=== PATIENT | female | born 1940 | race Caucasian/White ===

== ENCOUNTER 2018-03-11 12:27 | Outpatient (REF) | payer MEDICARE, OTHER, SELFPAY ==
[2018-03-11 21:02] LABS: BUN 14 mg/dL (7-18); CREATININE 1.02 mg/dL (0.55-1.02); Calcium 9.4 mg/dL (8.5-10.1); Chloride 102 mmol/L (98-107); Estimated GFR 52.83 (mL/min/1.73m2); Glucose 100 mg/dL (70-100); Potassium 3.8 mmol/L (3.5-5.1); Sodium 142 mmol/L (136-145); TSH 2.95 uIU/mL (0.358-3.74)
== END 2018-03-11 12:47 ==
LOC: NCHCN 12:27
PROVIDERS: PCP Internal Medicine; Visit Provider Internal Medicine
DX: E03.9 Hypothyroidism, unspecified (principal); I10 Essential (primary) hypertension
CPT/HCPCS: 80048; 84443

== ENCOUNTER 2019-03-14 10:01 | Outpatient (CLI) | payer MEDICARE, OTHER, SELFPAY ==
--- NOTE | 2019-03-14 09:16 | DI.RAD_ITS ---
EXAM: XR HIP RT COMPLETE AP PELVIS CLINICAL HISTORY: R hip pain s/p [facility] TECHNIQUE: COMPARISON: PELVIS AP from 08/05/2011 FINDINGS: Three views were obtained. There are bilateral hip prostheses in position. The components appear we ll seated. No other significant bony abnormality seen. IMPRESSION:
[2019-03-14 22:36] LABS: BUN 14 mg/dL (7-18); CREATININE 0.91 mg/dL (0.55-1.02); Calcium 9.5 mg/dL (8.5-10.1); Chloride 103 mmol/L (98-107); Glucose 102 mg/dL (74-106); Potassium 4.1 mmol/L (3.5-5.1); Sodium 143 mmol/L (136-145); TSH 3.76 uIU/mL (0.36-3.74)
== END 2019-03-14 10:21 ==
PROVIDERS: PCP Internal Medicine; Referring Provider Family Medicine; Visit Provider Student in an Organized Health Care Education/Training Program
DX: M25.551 Pain in right hip (principal); Z96.643 Presence of artificial hip joint, bilateral; I10 Essential (primary) hypertension; E03.9 Hypothyroidism, unspecified; L29.9 Pruritus, unspecified
CPT/HCPCS: 80048; 99214; 73502; 84443

== ENCOUNTER 2019-09-20 00:31 | Outpatient (CLI) | payer MEDICARE, SELFPAY ==
--- NOTE | 2019-09-20 08:45 | DI.NM_ITS ---
APPROVED REPORT Exam: Pharmacologic Patient Location: Out-Patient Room/Bed: BMI: 34.20 Baseline Rhythm: Sinus Bradycardia Comment: chest heaviness 6/10 on arrival to stress lab. Indications: Chest Pain Medical History Medical History: HTN, Hyperlipidemia, Obesity Cardiac Medications: Aspirin, Diltiazem, Metoprolol succinate/ Toprol XL Allergies: titanium dioxide, dyazide,iodine, lisinopril, morphine, spironalactone Cardiac Risk Factors: Hyperlipidemia, Hyperlipidemia, PVD Pretest Chest Pain Characteristics: Non-exertional Chest pain Exercise History: Sedentary Physical Disabilities: Legs Lung Sounds: Clear to auscultation Heart Sounds: Regular Stress Test Details Test: Pharmacologic stress testing performed using 0.4 mg of regadenoson per 5 mL given IV over 10 s econds. Reason for pharmacologic stress test: physical limitation. Nuclear Acquisition: Rest Tc-99m/Stress Tc-99m 1 day Rest Isotope: Tc-99m Sestamibi. Dose: 12.1 Date: 09/20/2019 Injection Time: 0900 Stress Isotope: Tc-99m Sestamibi. Dose: 39 Date: 09/20/2019 Injection Time: 1122 HR Resting HR Supine: 59 bpm Max Heart Rate (APMHR): 143 bpm Target HR (85% APMHR): 121 bpm Max HR Achieved: 81 bpm % of APMHR: 56 Recovery HR: 68 bpm HR response to stress: Normal HR response to stress BP Resting BP Supine: 162/80 mmHg Max BP: 162/80 mmHg Recovery BP: 162/78 mmHg BP response to stress: Normal blood pressure response to stress. ECG Resting ECG: Sinus Bradycardia Stress ECG: Sinus Rhythm, Clear Maximum ST Deviation: 0.8 mm Recovery ECG: Sinus Rhythm Recovery Arrhythmia: None Clinical Reason for Termination: vs returned to baseline Stress Symptoms: Chest pain Exercise duration: 6 min0 sec Exercise capacity: 1 METs Stress ECG Conclusion 1. Resting electrocardiogram was normal. 2. Patient underwent pharmacologic stress. Peak heart rate was 58% of predicted for age. There were no electrocardiographic changes noted. Electrocardiographically the test was nondiagnostic due to i nadequate heart rate. 3. The patient had chest pain prior to the test which persisted 4. There were no significant dysrhythmias Critical Notification Critical Value: No MPI Conclusion Myocardial perfusion appeared within normal limits without evidence of infarction or superimposed isc hemia Ejection fraction was 67% Radiologist Interpretation Radiologist agrees with Harmonic Analyst's Interpretation. Radiologist Interpretation by: Joseph Phelan MD Interpretation Date/Time: 09/26/2019 14:53:15
[2019-09-20] MEDS: Regadenoson 0.4 MG/5 ML SYR IVP (11:39)
== END 2019-09-20 00:51 ==
PROVIDERS: PCP Internal Medicine; Visit Provider Internal Medicine
DX: R07.9 Chest pain, unspecified (principal); R00.1 Bradycardia, unspecified; E78.5 Hyperlipidemia, unspecified; I10 Essential (primary) hypertension; I73.9 Peripheral vascular disease, unspecified; R94.39 Abnormal result of other cardiovascular function study
CPT/HCPCS: 78452; 93016; 93018; 93017; J2785

== ENCOUNTER 2020-04-02 16:55 | Outpatient (REF) | payer MEDICARE, SELFPAY ==
[2020-04-02 14:38] LABS: BUN 20 mg/dL (7-18); Calcium 9.7 mg/dL (8.5-10.1); Chloride 102 mmol/L (98-107); Estimated GFR 53.76 (mL/min/1.73m2); Glucose 115 mg/dL (74-106); Potassium 3.8 mmol/L (3.5-5.1); Sodium 139 mmol/L (136-145); TSH 2.71 uIU/mL (0.36-3.74)
== END 2020-04-02 16:56 | disposition home or self-care (01) ==
LOC: NCHCN 16:55
PROVIDERS: PCP Internal Medicine; Visit Provider Internal Medicine
DX: E03.9 Hypothyroidism, unspecified (principal); I10 Essential (primary) hypertension
CPT/HCPCS: 80048; 84443

== ENCOUNTER 2021-04-16 16:41 | Outpatient (REF) | payer MEDICARE, SELFPAY ==
[2021-04-16 20:23] LABS: Anion Gap 10.6 mmol/L (3-11); BUN 15 mg/dL (7-18); CO2 28.4 mmol/L (21.0-32.0); Calcium 9.5 mg/dL (8.5-10.1); Chloride 104 mmol/L (98-107); Estimated GFR 53.62 (mL/min/1.73m2); Glucose 101 mg/dL (74-106); Magnesium 1.6 mg/dL (1.8-2.4); Potassium 4.1 mmol/L (3.5-5.1); Sodium 143 mmol/L (136-145); TSH 1.96 uIU/mL (0.36-3.74)
== END 2021-04-16 16:42 | disposition home or self-care (01) ==
LOC: NCHCN 16:41
PROVIDERS: PCP Internal Medicine; Visit Provider Internal Medicine
DX: I10 Essential (primary) hypertension (principal); E03.9 Hypothyroidism, unspecified; E87.6 Hypokalemia
CPT/HCPCS: 80048; 83735; 84443

== ENCOUNTER 2021-09-11 11:54 | Outpatient (REF) | payer MEDICARE, SELFPAY | END 2021-09-11 11:55 | disposition home or self-care (01) | LOC: NCHCN 11:54 | PROVIDERS: PCP Internal Medicine; Visit Provider Family Medicine | DX: N39.0 Urinary tract infection, site not specified (principal) | CPT/HCPCS: 87077; 87086; 87186 ==

== ENCOUNTER 2021-10-14 18:20 | Outpatient (REF) | payer MEDICARE, SELFPAY ==
[2021-10-14 15:21] LABS: Abs Immature Grans 0.04 10^3/uL (0.0-0.06); Absolute Basophil Count 0.06 10^3/uL (0.0-0.2); Absolute Eosinophil Count 0.27 10^3/uL (0.0-0.7); Absolute Lymphocyte Count 1.77 10^3/uL (1.2-3.4); Absolute Monocyte Count 0.59 10^3/uL (0.1-0.8); Absolute Neutrophil Count 5.07 10^3/uL (1.2-6.7); Basophils % 0.8; Eosinophils % 3.5; HCT 41.9 % (36.0-46.0); HGB 14.1 g/dL (11.2-15.7); Immature Grans % 0.5; Lymphocytes % 22.7; MCH 30.9 pg (27.0-33.0); MCHC 33.7 % (32.0-36.0); MCV 92 fL (80-95); MPV 10.6 fL (8.0-11.0); Monocytes % 7.6; Neutrophils % 64.9; Platelet Count 259 10^3/uL (130-400); RBC 4.56 10^6/uL (3.93-5.22); RDW 11.7 % (11.7-14.6); RDW-SD 39.4 fL
[2021-10-14 15:55] LABS: ALT 48 U/L (14-59); AST 30 U/L (15-37); Albumin 3.8 g/dL (3.4-5.0); Alkaline Phosphatase 89 U/L (46-116); Anion Gap 8.4 mmol/L (3-11); BUN 21 mg/dL (7-18); Bilirubin, Total 0.5 mg/dL (0.2-1.0); CO2 29.6 mmol/L (21.0-32.0); CREATININE 1.1 mg/dL (0.55-1.02); Calcium 9.8 mg/dL (8.5-10.1); Chloride 103 mmol/L (98-107); Estimated GFR 47.91 (mL/min/1.73m2); Glucose 116 mg/dL (74-106); Magnesium 1.7 mg/dL (1.8-2.4); Potassium 4.2 mmol/L (3.5-5.1); Sodium 141 mmol/L (136-145); Total Protein 7.6 g/dL (6.4-8.2)
== END 2021-10-14 18:21 | disposition home or self-care (01) ==
LOC: NCHCN 18:20
PROVIDERS: PCP Internal Medicine; Visit Provider Internal Medicine
DX: M25.551 Pain in right hip (principal); I10 Essential (primary) hypertension; E83.42 Hypomagnesemia
CPT/HCPCS: 80053; 83735; 85025

== ENCOUNTER 2022-02-21 11:08 | Observation (INO) | payer MEDICARE, SELFPAY ==
[2022-02-21] VITALS (41 sets, daily range): BP systolic 120–181; BP diastolic 46–89; PULSE 71–89; RESP 14–30; TEMP 36.6–36.8; O2SAT 86–95
--- NOTE | 2022-02-21 10:45 | RT.EKG_ITS ---
APPROVED REPORT Exam: Resting ECG Reason for Exam: Dyspnea Patient Location: E HR:69 bpm ECG Measurements Heart Rate 69 AXIS IA 186 P 53 QRSd 87 QRS -4 QT 389 T 43 QTc 418 Conclusion Sinus rhythm...normal P axis, V-rate 60- 99 sinus rhythm, normla axis, normal intervals, non ischemic
--- NOTE | 2022-02-21 12:00 | DI.CT_ITS ---
Exam(s) CT CHEST PE CTA EXAM: CT CHEST PE CTA CLINICAL HISTORY: shortness of breath and chest pain. TECHNIQUE: Imaging Protocol: Axial CT angiography was performed with multi-slice acquisition and mu lti-planar reconstructions as well as axial, coronal and sagittal MIP reconstructions. CONTRAST MATERIAL: Intravenous: Omnipaque 350 Contrast volume:100 ml COMPARISON: CT,NM,TMT NM MPI REST STRESS GRP from 09/20/2019 FINDINGS: Pulmonary Arteries: There are bilateral upper and lower lobe pulmonary emboli are noted extending to the right and left pulmonary arteries. There is no saddle embolus. The emboli are greatest in the lower lobe branches although there are small emboli seen in the upper lobe branches. There is no ev idence of right heart strain. Tracheobronchial tree: Patent where visualized. Mediastinum and Keshia: No dominant adenopathy or fluid collection. Pulmonary parenchyma: No consolidation or dominant measurable mass. Pleura: No effusion or pneumothorax. Heart: The heart is not dilated. No evidence of right heart strain. No coronary artery calcificatio ns are seen. Aorta: Thoracic aorta non-dilated. No aneurysm. No dissection. Mild atherosclerotic changes. Upper abdomen: Pancreas somewhat atrophic. Bones: Severe degenerative changes. No compression fractures. IMPRESSION: Bilateral upper and lower lobe pulmonary emboli. No evidence of right heart strain. Findings were called to Leyla Pearl, emergency department provider. RADIATION DOSE DELIVERED: 563.54mGy.cm Total DLP DATA REPOSITORY: All CT scans at this facility are submitted to the National Radiology Data Registry (NRDR) Dose Index Registry (DIR) with the [employer] ([employer]). RADIATION OPTIMIZATION: All CT scans at this facility use at least one of these dose optimization te chniques: automated exposure control; mA and/or kV adjustment per patient size (includes targeted exa ms where dose is matched to clinical indication); or iterative reconstruction.
[2022-02-21] MEDS: Aspirin 81 MG CHEW 243 MG CH (12:21)
[2022-02-21] MEDS: Dexamethasone 4 MG/ML VIAL 6 MG IVP (12:22)
[2022-02-21 12:26] LABS: Abs Immature Grans 0.05 10^3/uL (0.0-0.06); Absolute Basophil Count 0.07 10^3/uL (0.0-0.2); Absolute Lymphocyte Count 0.99 10^3/uL (1.2-3.4); Absolute Neutrophil Count 7.59 10^3/uL (1.2-6.7); Basophils % 0.7; Eosinophils % 2.1; HCT 41.4 % (36.0-46.0); HGB 14.2 g/dL (11.2-15.7); Immature Grans % 0.5; Lymphocytes % 10.3; MCH 31.3 pg (27.0-33.0); MCHC 34.3 % (32.0-36.0); MCV 91 fL (80-95); MPV 8.9 fL (8.0-11.0); Monocytes % 7.3; Neutrophils % 79.1; Platelet Count 284 10^3/uL (130-400); RBC 4.53 10^6/uL (3.93-5.22); RDW 11.8 % (11.7-14.6); RDW-SD 39.4 fL
--- NOTE | 2022-02-21 12:35 | ED.GENADUL_ITS ---
Discharge Plan Disposition Patient Disposition: Home Condition: Serious Discharge Details Clinical Impression: Pulmonary embolism Primary Care Provider: Cedric Martinez ED Provider: Leyla Pearl Discharge Data Discharge Date/Time-TO BE ENTERED AT DEPARTURE: 02/21/22 16:54 Medical Decision Making This 81-year-old female presents with reports of shortness of breath and chest pain that started this morning in the presence of recent COVID infection 20 days ago Denies prior history of similar symptoms in the past D-dimer 6492, CTA showing bilateral PEs with large clot burden, troponin negative, BNP mildly elevated, no evidence of heart strain per radiologist on CTA, specifically no infarction Patient ambulatory sat of 86% with chest pain on any sort of exertion Will need admission just for observation Lovenox initiated initially, will likely transition to Eliquis Return cautions reviewed and patient expressed understanding CODE STATUS DNR/DNI Medical Records Medical records reviewed: Yes I reviewed the patient's medical records. Lab Data Lab results reviewed: Yes I reviewed the patient's lab results. HPI General Date/Time Provider Initiated Documentation: 02/21/22 11:56 . HPI Narrative: This 81-year-old female presents with worsening shortness of breath. Tested positive for COVID on 29 January. States symptoms started on the fifth. She took packs living and has had persistent symptoms but worsened today. Reports some pressure in her chest, predominantly when taking deep inspiration. She denies any calf pain or swelling. She denies any recent flights, surgeries, long drives. She denies prior history of coagulopathy. Denies known history of COPD. Does not smoke tobacco. Denies any history of coronary artery disease. Related Data Home Medications Medication Instructions Recorded Confirmed metoprolol succinate 50 mg 50 mg PO DAILY 09/06/12 02/21/22 tablet,extended release 24 hr cephalexin 500 mg capsule 2,000 mg PO .BEFORE DENTAL APPT PRN 01/10/16 02/21/22 indapamide 1.25 mg tablet 1.25 mg PO DAILY 01/10/16 02/21/22 levothyroxine 25 mcg tablet 25 mcg PO DAILY 01/10/16 02/21/22 potassium chloride 10 mEq 10 meq PO DAILY 01/10/16 02/21/22 tablet,extended release triamcinolone acetonide 0.1 % 1 applic topical PRN PRN Itching 01/10/16 02/21/22 topical cream diltiazem HCl 240 mg 240 mg PO DAILY 09/05/16 02/21/22 tablet,extended release 24 hr acetaminophen 500 mg tablet 1,000 mg PO BID PRN 02/21/22 02/21/22 cholecalciferol (vitamin D3) 25 3 cap PO DAILY 02/21/22 02/21/22 mcg (1,000 unit) capsule (Vitamin D3) losartan 25 mg tablet 1 tab PO HS 02/21/22 02/21/22 magnesium oxide 1 cap PO DAILY 02/21/22 02/21/22 omeprazole 20 mg capsule,delayed 1 cap PO PRN PRN 02/21/22 02/21/22 release rivaroxaban 15 mg tablet (Xarelto) 15 mg PO BID #42 tabs 02/22/22 rivaroxaban 20 mg tablet (Xarelto) 20 mg PO DAILY #30 tabs 02/22/22 Previous Rx's Medication Instructions Recorded rivaroxaban 15 mg tablet (Xarelto) 15 mg PO BID #42 tabs 02/22/22 rivaroxaban 20 mg tablet (Xarelto) 20 mg PO DAILY #30 tabs 02/22/22 Allergies Allergy/AdvReac Type Severity Reaction Status Date / Time iodine Allergy Severe itching, Unverified 03/14/19 08:44 rash, skin irritation morphine sulfate Allergy Severe itching, Unverified 03/14/19 08:44 [From MS Contin] rash, skin irritation sulfamethoxazole Allergy Severe itching, Unverified 03/14/19 08:44 [From Bactrim] rash, skin irritation trimethoprim [From Bactrim] Allergy Severe itching, Unverified 03/14/19 08:44 rash, skin irritation General Stated Complaint: SOB MITCHELL: 3 Review of Systems All systems reviewed & are unremarkable except as noted in HPI and below PFSH All Active Problems (Updated 02/23/22 @ 00:01 by LESLEE SIBLEY) Pulmonary embolism (Chronic) Trochanteric bursitis of right hip (Acute) Medical History (Updated 02/23/22 @ 00:01 by LESLEE SIBLEY) Essential hypertension Hypercholesterolemia Obesity Osteoporosis Surgical History (Updated 03/14/19 @ 10:34 by SRINIVASAN Jacobsen) Abdominal hysterectomy Arthroplasty of knee Colonoscopy - IV Sedation History of total left hip replacement w/ revision as 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 Fay History of total right knee replacement (TKR) Open Carpal Tunnel release Social History Smoking/Tobacco Use Status: Never Smoking risk assessment performed?: Yes Alcohol Intake: never Drug use: Never Substance use type: does not use Current gender identity: female Do you feel safe at home: Yes Do you feel safe in your relationship?: Yes Exam Const General: cooperative, comfortable and no acute distress Orientation: alert and oriented x3 Eyes Sclera: sclerae normal Resp Effort & Inspection: tachypneic Auscultation: clear to auscultation bilaterally Cardio Rate: regular rate Rhythm: regular rhythm Skin General skin exam: no rashes or lesions noted Neuro General: patient alert and patient oriented x3 Extrem Other: No visible swelling, distal pulses intact Course Vital Signs Vital signs: Vital Signs Temperature 36.6 C 02/21/22 11:12 Pulse 74 02/21/22 11:12 Respiratory Rate 28 H 02/21/22 11:12 Blood Pressure 154/80 H 02/21/22 11:12 Pulse Oximetry 94 02/21/22 11:12 Temperature 36.6 C 02/21/22 11:12 Temperature Source Temporal Artery Scan 02/21/22 11:12 Pulse 79 02/21/22 12:16 Pulse 78 02/21/22 12:16 Respiratory Rate 24 02/21/22 12:16 Respiratory Effort 02/21/22 11:31 Respiratory Depth Normal 02/21/22 11:31 Respiratory Pattern Normal 02/21/22 11:31 Blood Pressure 151/66 H 02/21/22 12:16 Blood Pressure Mean 88 02/21/22 12:16 Blood Pressure Position Supine 02/21/22 11:12 Pulse Oximetry 93 02/21/22 12:16 Oxygen Delivery Method Room Air 02/21/22 11:12 Oxygen Flow Rate 0 02/21/22 11:12 Pain Level 3 02/21/22 11:31 Lab/Test Results Lab/Test Results: Laboratory Tests Range/Units 02/21/22 02/21/22 11:46 11:46 WBC (4.4-10.8) 10^3/uL 9.60 RBC (3.93-5.22) 10^6/uL 4.53 Hgb (11.2-15.7) g/dL 14.2 Hct (36.0-46.0) % 41.4 MCV (80-95) fL 91 MCH (27.0-33.0) pg 31.3 MCHC (32.0-36.0) % 34.3 RDW (11.7-14.6) % 11.8 Plt Count (130-400) 10^3/uL 284 MPV (8.0-11.0) fL 8.9 Immature Gran % 0.5 Neutrophils % 79.1 Lymphocytes % 10.3 Monocytes % 7.3 Eosinophils % 2.1 Basophils % 0.7 Nucleated RBC % (0.0-0.3) % 0.0 Absolute Neutrophils (1.2-6.7) 10^3/uL 7.59 H Absolute Lymphocytes (1.2-3.4) 10^3/uL 0.99 L Absolute Monocytes (0.1-0.8) 10^3/uL 0.70 Absolute Eosinophils (0.0-0.7) 10^3/uL 0.20 Absolute Basophils (0.0-0.2) 10^3/uL 0.07 Sodium Cancelled Potassium Cancelled Chloride Cancelled Carbon Dioxide Cancelled Anion Gap Cancelled BUN Cancelled Creatinine Cancelled Est GFR (CKD-EPI 2020) Cancelled Glucose Cancelled Calcium Cancelled Total Bilirubin Cancelled AST Cancelled ALT Cancelled Alkaline Phosphatase Cancelled Total Protein Cancelled Albumin Cancelled Critical Care Time Critical Care Time Attestation: Approximately 45 minutes of critical care time for pulmonary embolism in need of anticoagulation, CTA chest, with diagnostic interpretation, diagnostic blood work
[2022-02-21 12:51] LABS: ALT 32 U/L (14-59); AST 21 U/L (15-37); Albumin 3.7 g/dL (3.4-5.0); Alkaline Phosphatase 106 U/L (46-116); Anion Gap 7.2 mmol/L (3-11); BUN 23 mg/dL (7-18); Bilirubin, Total 0.3 mg/dL (0.2-1.0); CO2 28.8 mmol/L (21.0-32.0); CREATININE 1.1 mg/dL (0.55-1.02); Calcium 9.4 mg/dL (8.5-10.1); Chloride 103 mmol/L (98-107); Estimated GFR 51.11 (mL/min/1.73m2); Glucose 114 mg/dL (74-106); Magnesium 1.7 mg/dL (1.8-2.4); NT-proBNP 403 pg/mL (<300); Potassium 3.6 mmol/L (3.5-5.1); Sodium 139 mmol/L (136-145); Total Protein 7.5 g/dL (6.4-8.2); Troponin I < 50 ng/L (<or=60)
[2022-02-21 13:03] LABS: D-Dimer 6241 ng/mlFEU (<500)
[2022-02-21] MEDS: Normal Saline - Diluent 50 ML VIAL IJ (13:23)
[2022-02-21] MEDS: Omnipaque 350 MG/ML 100 ML BTL IJ (13:29)
[2022-02-21] MEDS: Enoxaparin 80 MG/0.8 ML SYR 90 MG SC (15:34)
[2022-02-21 15:38] LABS: Source Nasal/Nares
[2022-02-21 16:09] LABS: COVID-19 PCR Negative (Negative)
[2022-02-21 17:08] LABS: Troponin I < 50 ng/L (<or=60)
--- NOTE | 2022-02-21 18:35 | W.PM.HP.N ---
Date of service: 02/21/22 Time of Service: 18:35 Assessment and Plan Assessment and plan (1) Pulmonary embolism: Status: Chronic Assessment and plan: Shortness of breath; Apixaban 10 mg BID , oxygen as needed; CTA positive for PE Telemetry (2) Essential hypertension: Assessment and plan: Continue home meds (3) Obesity: Assessment and plan: clinical research administrator consult (4) DVT prophylaxis: Status: Acute Assessment and plan: Apixaban (5) Discharge planning issues: Status: Acute Assessment and plan: Home when stable, no services Discussed with Dr Mahmood History of Present Illness History of Present Illness Chief Complaint: Shortness of breath Narrative: This 81-year-old female paitent presented to the [facility] ED with chief complaint of shortness of breath.? She reports having tested positive for COVID on 29 January.? She took paxlovid and had persistent symptoms and she reported it worsened today.? She also reported some pressure in her chest, with deep breathing. ? She denied any calf pain or swelling.? She denied any recent flights, surgeries, long drives.? She denied prior history of coagulopathy.? Denied known history of COPD.? Does not smoke tobacco.? Denies any history of coronary artery disease. She was found to have pulmonary embolism, was put on Apixaban and placed on observation on the medical floor. SPO2 on RA 94%, speaks in full sentences. 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 Fay History of total right knee replacement (TKR) Open Carpal Tunnel release Social History Smoking/Tobacco Use Status: Never Smoking risk assessment performed?: Yes Alcohol Intake: never Drug use: Never Substance use type: does not use Current gender identity: female Do you feel safe at home: Yes Do you feel safe in your relationship?: Yes Meds Allergies and Home Medications Allergies Allergy/AdvReac Type Severity Reaction Status Date / Time iodine Allergy Severe itching, Unverified 03/14/19 08:44 rash, skin irritation morphine sulfate Allergy Severe itching, Unverified 03/14/19 08:44 [From MS Contin] rash, skin irritation sulfamethoxazole Allergy Severe itching, Unverified 03/14/19 08:44 [From Bactrim] rash, skin irritation trimethoprim [From Bactrim] Allergy Severe itching, Unverified 03/14/19 08:44 rash, skin irritation Home Medications Medication Instructions Recorded Confirmed Type metoprolol succinate 50 mg 50 mg PO DAILY 09/06/12 02/21/22 History tablet,extended release 24 hr cephalexin 500 mg capsule 2,000 mg PO .BEFORE DENTAL APPT PRN 01/10/16 02/21/22 History indapamide 1.25 mg tablet 1.25 mg PO DAILY 01/10/16 02/21/22 History levothyroxine 25 mcg tablet 25 mcg PO DAILY 01/10/16 02/21/22 History potassium chloride 10 mEq 10 meq PO DAILY 01/10/16 02/21/22 History tablet,extended release triamcinolone acetonide 0.1 % 1 applic topical PRN PRN Itching 01/10/16 02/21/22 History topical cream diltiazem HCl 240 mg 240 mg PO DAILY 09/05/16 02/21/22 History tablet,extended release 24 hr acetaminophen 500 mg tablet 1,000 mg PO BID PRN 02/21/22 02/21/22 History cholecalciferol (vitamin D3) 25 3 cap PO DAILY 02/21/22 02/21/22 History mcg (1,000 unit) capsule (Vitamin D3) losartan 25 mg tablet 1 tab PO HS 02/21/22 02/21/22 History magnesium oxide 1 cap PO DAILY 02/21/22 02/21/22 History omeprazole 20 mg capsule,delayed 1 cap PO PRN PRN 02/21/22 02/21/22 History release rivaroxaban 15 mg tablet (Xarelto) 15 mg PO BID #42 tabs 02/22/22 Rx rivaroxaban 20 mg tablet (Xarelto) 20 mg PO DAILY #30 tabs 02/22/22 Rx Exam Const General: cooperative, healthy appearing, comfortable and no acute distress HENMT Head: normal to inspection, normocephalic and atraumatic Face and sinus: normal facial exam Mouth: oral mucosae normal Throat: posterior oropharynx normal Eyes General: appearance normal, both eyes and all related structures Alignment and Position: alignment normal Conjunctivae: conjunctivae normal Sclera: sclerae normal Pupils: PERRL Neck Neck: normal visual inspection, full ROM, no lymphadenopathy, no meningeal signs and trachea midline Chest Chest: normal inspection of the chest and normal palpation of entire chest wall Resp Effort & Inspection: normal respiratory effort and able to speak in complete sentences Auscultation: clear to auscultation bilaterally Cardio Jugular venous pressure: no JVD Rate: regular rate Rhythm: regular rhythm Heart Sounds: S1 normal and S2 normal GI Inspection: normal to inspection and non-distended Palpation: soft, hepatosplenomegaly present and nontender Auscultation: normal bowel sounds Back/Spine/Pelvis Back: no CVA tenderness Cervical Spine: normal cervical lordosis Thoracic/Lumbar Spine: thoracic and lumbar spine normal to inspection Pelvis: no pain with anterior-posterior compression Skin General skin exam: no rashes or lesions noted, elasticity normal and turgor normal Neuro General: patient alert, patient awake, patient oriented x3, gait normal, tone normal, moves all extremities and normal light touch, pain and propioception Cranial Nerves: CN's II-XI intact bilaterally Cognition: normal cognition Speech: speech normal Gait: normal gait Motor: muscle tone normal throughout Sensory Exam: no sensory deficits noted Extrem General: normal to inspection, full ROM and capillary refill normal Right upper extremity: normal to inspection Left upper extremity: normal to inspection Right lower extremity: normal to inspection Left lower extremity: normal to inspection Results Labs Result diagrams: 02/21/22 11:46 02/22/22 05:40 Labs: Laboratory Results - last 24 hr 02/21/22 02/21/22 02/21/22 11:46 11:46 11:46 WBC RBC Hgb Hct MCV MCH MCHC RDW Plt Count MPV Immature Gran % Neutrophils % Lymphocytes % Monocytes % Eosinophils % Basophils % Nucleated RBC % Absolute Neutrophils Absolute Lymphocytes Absolute Monocytes Absolute Eosinophils Absolute Basophils D-Dimer 6241 H Sodium 139 Cancelled Potassium 3.6 Cancelled Chloride 103 Cancelled Carbon Dioxide 28.8 Cancelled Anion Gap 7.2 Cancelled BUN 23 H Cancelled Creatinine 1.1 H Cancelled Est GFR (CKD-EPI 2020) 51.11 Cancelled Glucose 114 H Cancelled Calcium 9.4 Cancelled Magnesium 1.7 L Total Bilirubin 0.3 Cancelled AST 21 Cancelled ALT 32 Cancelled Alkaline Phosphatase 106 Cancelled Troponin I < 50 NT-Pro-B Natriuret Pep 403 H Total Protein 7.5 Cancelled Albumin 3.7 Cancelled COVID-19 Source SARS-CoV-2 (PCR) 02/21/22 02/21/22 02/21/22 11:46 15:30 16:24 WBC 9.60 RBC 4.53 Hgb 14.2 Hct 41.4 MCV 91 MCH 31.3 MCHC 34.3 RDW 11.8 Plt Count 284 MPV 8.9 Immature Gran % 0.5 Neutrophils % 79.1 Lymphocytes % 10.3 Monocytes % 7.3 Eosinophils % 2.1 Basophils % 0.7 Nucleated RBC % 0.0 Absolute Neutrophils 7.59 H Absolute Lymphocytes 0.99 L Absolute Monocytes 0.70 Absolute Eosinophils 0.20 Absolute Basophils 0.07 D-Dimer Sodium Potassium Chloride Carbon Dioxide Anion Gap BUN Creatinine Est GFR (CKD-EPI 2020) Glucose Calcium Magnesium Total Bilirubin AST ALT Alkaline Phosphatase Troponin I < 50 NT-Pro-B Natriuret Pep Total Protein Albumin COVID-19 Source Nasal/Nares SARS-CoV-2 (PCR) Negative Last Vital Signs Temp 36.8 C 02/21/22 17:06 Pulse 85 02/21/22 17:06 Resp 25 H 02/21/22 17:06 BP 167/76 H 02/21/22 17:06 Pulse Ox 94 02/21/22 17:06
--- NOTE | 2022-02-21 20:43 | TELEP.MEDREC ---
Date of service: 02/21/22 Time of Service: 20:43 Telepharmacy Home Med Rec Allergies Allergies: iodine Allergy (Severe, Unverified 03/14/19 08:44) itching, rash, skin irritation morphine sulfate [From MS Contin] Allergy (Severe, Unverified 03/14/19 08:44) itching, rash, skin irritation sulfamethoxazole [From Bactrim] Allergy (Severe, Unverified 03/14/19 08:44) itching, rash, skin irritation trimethoprim [From Bactrim] Allergy (Severe, Unverified 03/14/19 08:44) itching, rash, skin irritation Interview Person Interviewed: Pt Quality Quality of Interview/Accuracy of Medication List: Good Sources Sources used to compile medication list: [facility] Medication List and Patient List Changes made to Home Medication List: ADDITIONS: None DELETIONS: MVI CHANGES: APAP 1000 mg po bid prn Losartan 25 mg po qhs Omeprazole 20 mg po qday Additional Notes Additional Notes: Pt finished Paxlovid course earlier in January. Pt reports that she takes all meds in the morning except losartan at bedtime. Recommended Changes Recommended Changes(reason for recommendation): Coadministration of levothyroxine, vitamins/minerals, and omeprazole is not recommeded due to drastically reduced the amount of levothyroxine that is absorbed. Recommend pt continue taking levothryoxine in the am and omeprazole and all supplements at another meal (for example, levo in am, supplements at lunch, omeprazole at dinner). Attestation: The home medication list is now updated to the best of my knowledge and is ready to be reconciled by the provider. Please contact the TelePharmacy Medication Reconciliation Pharmacist at for any questions.
[2022-02-21] MEDS: Acetaminophen 500 MG TAB 1000 MG PO (22:37)
[2022-02-21] MEDS: Losartan 25 MG TAB PO (22:37)
[2022-02-22] VITALS (7 sets, daily range): BP systolic 132–166; BP diastolic 68–84; PULSE 63–87; RESP 17–20; TEMP 36.4–37; O2SAT 88–98
[2022-02-22] MEDS: Apixaban 5 MG TAB 10 MG PO ×2 (00:07→08:16)
[2022-02-22] MEDS: Omeprazole 20 MG CAPCR PO (06:33)
[2022-02-22] MEDS: Levothyroxine 25 MCG TAB PO (06:33)
[2022-02-22 06:38] LABS: Anion Gap 9.1 mmol/L (3-11); BUN 22 mg/dL (7-18); CO2 25.9 mmol/L (21.0-32.0); CREATININE 1.2 mg/dL (0.55-1.02); Calcium 9.4 mg/dL (8.5-10.1); Chloride 106 mmol/L (98-107); Estimated GFR 46.05 (mL/min/1.73m2); Glucose 147 mg/dL (74-106); Magnesium 1.8 mg/dL (1.8-2.4); Potassium 4.1 mmol/L (3.5-5.1); Sodium 141 mmol/L (136-145)
[2022-02-22] MEDS: Magnesium Oxide 400 MG TAB PO (08:16)
[2022-02-22] MEDS: Cholecalciferol (Vitamin D3) 1,000 UNIT TAB 3000 UNITS PO (08:16)
[2022-02-22] MEDS: Multivitamin TAB 1 TAB PO (08:16)
[2022-02-22] MEDS: dilTIAZem CD 120 MG CAPCR 240 MG PO (08:16)
[2022-02-22] MEDS: Potassium Chloride 10 MEQ TABCR PO (08:16)
[2022-02-22] MEDS: Metoprolol CR 50 MG TABCR PO (08:17)
--- NOTE | 2022-02-22 11:01 | W.PM.DS.N ---
Date of service: 02/22/22 Time of Service: 11:00 DS: Diagnosis Discharge Diagnosis (1) Pulmonary embolism: Status: Chronic Asessment and Plan: Will start Xarelto (her insurance will not pay for Apixaban) (2) Essential hypertension: Asessment and Plan: Continue home meds (3) Obesity: Discharge Plan Disposition Patient Disposition: Home Condition: Good Discharge Details Reason For Visit: Pulmonary Embolism Admit Date/Time: 02/21/22 15:49 Admit Provider: Iftikhar Mahmood Attending Provider: Iftikhar Mahmood Primary Care Provider: Cedric Martinez Hospital Course Hospital Course: 81-year-old female patient presented to the [facility] ED with chief complaint of shortness of breath. She reports having tested positive for COVID on January 29. She took Paxil elevated and had persistent symptoms, which she reported worsened on day of admission. She also reported some pressure in her chest with deep breathing. She denied any calf pain or swelling. She denied any recent air travel, surgeries, long drives. She denied prior history of coagulopathy. Denied known history of COPD. She does not smoke tobacco. She denies any history of coronary artery disease. She was found to have Dav embolism per CT scan and was put on apixaban. She is placed on observation on the medical floor overnight where she remained stable and her oxygen saturations remained over 94% on room air. She is speaking full sentences and she is able to walk to the bathroom without getting short of breath. Her vital signs are stable and labs are unremarkable. Her lungs are clear. She is being discharged home with Xarelto, her insurance will not pay for Apixaban. Discussed with Dr Mahmood Home Meds and New Rx's Prescriptions: New Xarelto 15 mg tablet 15 mg PO BID Qty: 42 0RF Rx Instructions: must administer with evening meal 15 mg twice a day for 21 days Xarelto 20 mg tablet 20 mg PO DAILY Qty: 30 0RF Rx Instructions: must administer with evening meal Begin after 15 mg for 21 days has been completed Continued metoprolol succinate 50 MG tablet extended release 24 hr 50 mg PO DAILY diltiazem HCl 240 MG tablet extended release 24 hr 240 mg PO DAILY potassium chloride 10 MEQ tablet extended release 10 meq PO DAILY levothyroxine 25 MCG tablet 25 mcg PO DAILY indapamide 1.25 MG tablet 1.25 mg PO DAILY triamcinolone acetonide 15 GM cream 1 applic Topical PRN PRN (Reason: Itching) cephalexin 500 MG capsule 2,000 mg PO .BEFORE DENTAL APPT PRN losartan 25 mg tablet 1 tab PO HS cholecalciferol (vitamin D3) [Vitamin D3] 25 mcg (1,000 unit) capsule 3 cap PO DAILY Label Comments: Take 1 capsule by mouth once a day magnesium oxide 400 mg magnesium capsule 1 cap PO DAILY Label Comments: Take 1 capsule by mouth once a day omeprazole 20 mg capsule,delayed release(DR/EC) 1 cap PO PRN PRN acetaminophen 500 mg Tablet 1,000 mg PO BID PRN Discontinued aspirin 81 mg tablet,delayed release (DR/EC) 81 mg PO DAILY Discharge Instructions Instructions: Apixaban (By mouth), Pulmonary Embolism (DC) Additional Instructions: Take apixaban - 10 mg twice a day for ten days and then 5 mg twice a day until you see your PCP. Be cautious not to fall, bump your head, etc. You are at greater risk of bleeding while taking Apixaban. Do not take Aspirin while taking Apixaban. Stand Alone Forms: Nursing Discharge Form Referrals: Cedric Martinez MD [Primary Care Provider] - (Please call Thursday to make an Appointment in the next 1-2 weeks) Activity:: Activity as Tolerated Equipment/Supplies:: No Equipment Needed Diet:: Low Sodium Discharge Orders Discharge Orders: Discharge Order (Routine); Ordered 02/22/22 Ordered By: Kaila Donohue Discharge Data Discharge Date/Time-TO BE ENTERED AT DEPARTURE: 02/22/22 13:08 DS: Summary Time Spent with Patient providing and/or coordinating discharge services: Greater than 30 minutes Status at Discharge Functional status at discharge: independent ambulation Overall status at discharge: patient is progressing back to baseline Mental Status: mental status grossly normal Speech and Movement: speech and movement normal Mood: congruent mood Affect: normal affect Exam Const General: cooperative, healthy appearing, comfortable and no acute distress [facility] Head: normal to inspection, normocephalic and atraumatic Face and sinus: normal facial exam Mouth: oral mucosae normal Throat: posterior oropharynx normal Eyes General: appearance normal, both eyes and all related structures Alignment and Position: alignment normal Conjunctivae: conjunctivae normal Sclera: sclerae normal Pupils: PERRL Neck Neck: normal visual inspection, full ROM, no lymphadenopathy, no meningeal signs and trachea midline Chest Chest: normal inspection of the chest and normal palpation of entire chest wall Resp Effort & Inspection: normal respiratory effort and able to speak in complete sentences Auscultation: clear to auscultation bilaterally Cardio Jugular venous pressure: no JVD Rate: regular rate Rhythm: regular rhythm Heart Sounds: S1 normal and S2 normal GI Inspection: normal to inspection and non-distended Palpation: soft, hepatosplenomegaly present and nontender Auscultation: normal bowel sounds Back/Spine/Pelvis Back: no CVA tenderness Cervical Spine: normal cervical lordosis Thoracic/Lumbar Spine: thoracic and lumbar spine normal to inspection Pelvis: no pain with anterior-posterior compression Skin General skin exam: no rashes or lesions noted, elasticity normal and turgor normal Neuro General: patient alert, patient awake, patient oriented x3, gait normal, tone normal, moves all extremities and normal light touch, pain and propioception Cranial Nerves: CN's II-XI intact bilaterally Cognition: normal cognition Speech: speech normal Gait: normal gait Motor: muscle tone normal throughout Sensory Exam: no sensory deficits noted Extrem General: normal to inspection, full ROM and capillary refill normal Right upper extremity: normal to inspection Left upper extremity: normal to inspection Right lower extremity: normal to inspection Left lower extremity: normal to inspection Psych Mental Status: mental status grossly normal Speech and Movement: speech and movement normal Mood: congruent mood Affect: normal affect DS: Data Vitals/I&O Vitals and I&O: Vital Signs Temperature 36.4 C L 02/22/22 07:48 Temperature Source Tympanic 02/22/22 07:48 Pulse 65 02/22/22 08:02 Pulse Rhythm Regular 02/22/22 08:15 Pulse 82 02/21/22 16:46 Respiratory Rate 18 02/22/22 07:48 Respiratory Effort 02/22/22 08:15 Respiratory Depth Normal 02/22/22 08:15 Respiratory Pattern Normal 02/22/22 08:15 Blood Pressure 163/84 H 02/22/22 07:48 Blood Pressure Mean 86 02/21/22 16:46 Blood Pressure Position Supine 02/21/22 11:12 Pulse Oximetry 98 02/22/22 07:48 Oxygen Delivery Method Nasal Cannula 02/22/22 07:48 Oxygen Flow Rate 1 02/22/22 07:48 Pain Level 0 02/22/22 07:48 Comment 02/22/22 00:04 Intake & Output 02/21/22 02/21/22 02/22/22 11:59 23:59 11:59 Output Total 500 / 500 Balance -500 / -500 Weight 94.347 kg 93 kg 91.6 kg Output: Urine 500 / 500 Other: Urine Color Yellow Urine Appearance Clear Clear Urine Odor None Comment Patient voiding independently Voiding Methods Toilet Data Completed and Pending Labs on day of discharge: Labs from last 24 hours 02/22/22 02/21/22 02/21/22 05:40 16:24 15:30 WBC RBC Hgb Hct MCV MCH MCHC RDW Plt Count MPV Immature Gran % Neutrophils % Lymphocytes % Monocytes % Eosinophils % Basophils % Nucleated RBC % Absolute Neutrophils Absolute Lymphocytes Absolute Monocytes Absolute Eosinophils Absolute Basophils D-Dimer Sodium 141 Potassium 4.1 Chloride 106 Carbon Dioxide 25.9 Anion Gap 9.1 BUN 22 H Creatinine 1.2 H Est GFR (CKD-EPI 2020) 46.05 Glucose 147 H Calcium 9.4 Magnesium 1.8 Total Bilirubin AST ALT Alkaline Phosphatase Troponin I < 50 NT-Pro-B Natriuret Pep Total Protein Albumin COVID-19 Source Nasal/Nares SARS-CoV-2 (PCR) Negative 02/21/22 02/21/22 02/21/22 11:46 11:46 11:46 WBC 9.60 RBC 4.53 Hgb 14.2 Hct 41.4 MCV 91 MCH 31.3 MCHC 34.3 RDW 11.8 Plt Count 284 MPV 8.9 Immature Gran % 0.5 Neutrophils % 79.1 Lymphocytes % 10.3 Monocytes % 7.3 Eosinophils % 2.1 Basophils % 0.7 Nucleated RBC % 0.0 Absolute Neutrophils 7.59 H Absolute Lymphocytes 0.99 L Absolute Monocytes 0.70 Absolute Eosinophils 0.20 Absolute Basophils 0.07 D-Dimer 6241 H Sodium Cancelled Potassium Cancelled Chloride Cancelled Carbon Dioxide Cancelled Anion Gap Cancelled BUN Cancelled Creatinine Cancelled Est GFR (CKD-EPI 2020) Cancelled Glucose Cancelled Calcium Cancelled Magnesium Total Bilirubin Cancelled AST Cancelled ALT Cancelled Alkaline Phosphatase Cancelled Troponin I NT-Pro-B Natriuret Pep Total Protein Cancelled Albumin Cancelled COVID-19 Source SARS-CoV-2 (PCR) 02/21/22 11:46 WBC RBC Hgb Hct MCV MCH MCHC RDW Plt Count MPV Immature Gran % Neutrophils % Lymphocytes % Monocytes % Eosinophils % Basophils % Nucleated RBC % Absolute Neutrophils Absolute Lymphocytes Absolute Monocytes Absolute Eosinophils Absolute Basophils D-Dimer Sodium 139 Potassium 3.6 Chloride 103 Carbon Dioxide 28.8 Anion Gap 7.2 BUN 23 H Creatinine 1.1 H Est GFR (CKD-EPI 2020) 51.11 Glucose 114 H Calcium 9.4 Magnesium 1.7 L Total Bilirubin 0.3 AST 21 ALT 32 Alkaline Phosphatase 106 Troponin I < 50 NT-Pro-B Natriuret Pep 403 H Total Protein 7.5 Albumin 3.7 COVID-19 Source SARS-CoV-2 (PCR) PFSH All Active Problems (Updated 02/22/22 @ 18:11 by Kaila Donohue NP) DVT prophylaxis (Acute) Discharge planning issues (Acute) Pulmonary embolism (Chronic) Trochanteric bursitis of right hip (Acute) Medical History (Updated 02/22/22 @ 18:11 by Kaila Donohue NP) Essential hypertension Hypercholesterolemia Obesity Osteoporosis Surgical History (Updated 03/14/19 @ 10:34 by SRINIVASAN Jacobsen) Abdominal hysterectomy Arthroplasty of knee Colonoscopy - IV Sedation History of total left hip replacement w/ revision as 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 Fay History of total right knee replacement (TKR) Open Carpal Tunnel release Social History Smoking/Tobacco Use Status: Never Smoking risk assessment performed?: Yes Alcohol Intake: never Drug use: Never Substance use type: does not use Current gender identity: female Do you feel safe at home: Yes Do you feel safe in your relationship?: Yes
== END 2022-02-22 13:08 | disposition home or self-care (01) ==
LOC: ER 16:14 → MS 17:02
PROVIDERS: Nurse Practitioner Family; Admitting Provider Internal Medicine; Emergency Provider Physician Assistant; PCP Internal Medicine; Visit Provider Internal Medicine
DX: I26.99 Other pulmonary embolism without acute cor pulmonale (principal); E66.9 Obesity, unspecified; I10 Essential (primary) hypertension; Z20.822 Contact with and (suspected) exposure to COVID-19; Z79.899 Other long term (current) drug therapy; Z66 Do not resuscitate; R06.02 Shortness of breath; E78.00 Pure hypercholesterolemia, unspecified; M81.0 Age-related osteoporosis without current pathological fracture; R07.89 Other chest pain; Z86.16 Personal history of COVID-19
CPT/HCPCS: 36415; 71275; 80048; 80053; 87635; 93005; 96372; 96374; 99291; 83735; 83880; 84484; 85025; 85379; 93010; 99217; 99225; G0378; J1100; J1650; J3490

== ENCOUNTER 2022-05-01 18:28 | Outpatient (REF) | payer MEDICARE, SELFPAY ==
[2022-05-01 15:19] LABS: HCT 41.1 % (36.0-46.0); HGB 13.9 g/dL (11.2-15.7); MCH 31.1 pg (27.0-33.0); MCHC 33.8 % (32.0-36.0); MCV 92 fL (80-95); MPV 10.1 fL (8.0-11.0); Platelet Count 280 10^3/uL (130-400); RBC 4.47 10^6/uL (3.93-5.22); RDW 12.1 % (11.7-14.6); RDW-SD 40.7 fL; WBC 7.56 10^3/uL (4.4-10.8)
[2022-05-01 15:37] LABS: ALT 27 U/L (14-59); AST 19 U/L (15-37); Albumin 4.1 g/dL (3.4-5.0); Alkaline Phosphatase 97 U/L (46-116); Anion Gap 9.4 mmol/L (3-11); BUN 16 mg/dL (7-18); Bilirubin, Total 0.6 mg/dL (0.2-1.0); CO2 30.6 mmol/L (21.0-32.0); Calcium 10.2 mg/dL (8.5-10.1); Chloride 103 mmol/L (98-107); Estimated GFR 57.31 (mL/min/1.73m2); Glucose 110 mg/dL (74-106); Lipase 32 U/L (16-77); Potassium 4.3 mmol/L (3.5-5.1); Sodium 143 mmol/L (136-145); TSH 1.53 uIU/mL (0.36-3.74); Total Protein 7.3 g/dL (6.4-8.2)
[2022-05-01 15:38] LABS: C-Reactive Protein < 0.05 mg/dL (0.0-0.3)
== END 2022-05-01 18:29 | disposition home or self-care (01) ==
LOC: NCHCN 18:28
PROVIDERS: PCP Internal Medicine; Visit Provider Family Medicine
DX: I10 Essential (primary) hypertension (principal); R53.83 Other fatigue; R10.9 Unspecified abdominal pain; E83.42 Hypomagnesemia; E87.6 Hypokalemia; E66.9 Obesity, unspecified
CPT/HCPCS: 80053; 83690; 85027; 84443; 86140

== ENCOUNTER 2022-05-19 01:50 | Outpatient (CLI) | payer MEDICARE, SELFPAY ==
--- NOTE | 2022-05-19 | DI.CT_ITS ---
Exam(s) CT ABDOMEN PELVIS W EXAM: CT ABDOMEN PELVIS W CLINICAL HISTORY: ABD PAIN R10.9 NAUSEA R11.0 R/O OBSTRUCTION MASS HERNIA. TECHNIQUE: Imaging Protocol: Axial computed tomography images with coronal and sagittal reformatted images were created and reviewed CONTRAST MATERIAL: Intravenous: Omnipaque 350 Contrast volume:100 ml Oral: yes COMPARISON: CT ABD PELVIS WITH CONTRAST from 09/09/[address] CHEST PE CTA from 02/21/2022 FINDINGS: ABDOMEN: Lung Bases: Normal where visualized. Liver: Normal density. No measurable mass. Gallbladder and biliary tract: No radiodense calculus or dilation. Pancreas: Somewhat atrophic. No abnormal calcifications or inflammatory process. Spleen: Normal. Kidneys: Normal size, contour and axis. No radiodense stones or obstructive uropathy. Cyst lower melissa e right kidney. No follow-up recommended. No suspicious masses seen. Adrenal glands: No masses seen. Abdominal Aorta: Abdominal portion non-dilated. Mild atherosclerotic changes. Soft tissues: Unremarkable. No evidence of abdominal wall or inguinal hernia. PELVIS: Bladder: No gross wall thickening. No calculi.No focal mass. Bowel: Extensive diverticulosis from splenic flexure through sigmoid. No obstruction. No inflammat ory changes. Appendix normal. Peritoneal cavity: No ascites, collection or mesenteric inflammatory response. Bones: Bilateral hip prostheses create artifact in the pelvis, obscuring visualization of the bladder and portion of the rectosigmoid. Degenerative changes and scoliosis noted in the lower thoracic and lumbar spine. Reproductive organs: Uterus may be surgically absent. Area not well evaluated due to artifact. Lymph nodes: Unremarkable. Impression: Diverticulosis. No evidence of diverticulitis. No evidence of mass or hernia. No acute abnormality in the abdomen or pelvis. RADIATION DOSE DELIVERED: 1,231.25mGy.cm Total DLP DATA REPOSITORY: All CT scans at this facility are submitted to the National Radiology Data Registry (NRDR) Dose Index Registry (DIR) with the [employer] (A[employer]). RADIATION OPTIMIZATION: All CT scans at this facility use at least one of these dose optimization te chniques: automated exposure control; mA and/or kV adjustment per patient size (includes targeted exa ms where dose is matched to clinical indication); or iterative reconstruction.
[2022-05-19] MEDS: Barium Sulfate 2% W/V-Berry Smoothie 450 ML BTL PO ×2 (11:35→11:36)
[2022-05-19] MEDS: Omnipaque 350 MG/ML 500 ML BTL-Imaging package IJ (13:38)
[2022-05-19] MEDS: Normal Saline - Diluent 50 ML VIAL IJ (13:39)
== END 2022-05-19 02:10 ==
LOC: DI 01:50
PROVIDERS: PCP Internal Medicine; Visit Provider Family Medicine
DX: R10.11 Right upper quadrant pain (principal); R11.0 Nausea; K57.30 Diverticulosis of large intestine without perforation or abscess without bleeding; Z96.643 Presence of artificial hip joint, bilateral; R10.31 Right lower quadrant pain
CPT/HCPCS: 74177

== ENCOUNTER 2022-05-22 01:22 | Outpatient (CLI) | payer MEDICARE, SELFPAY ==
--- NOTE | 2022-05-22 | DI.MAMMO_ITS ---
Exam(s) MAMMO SCREENING EXAM: MAMMO SCREENING CLINICAL HISTORY: SCREENING MAMMO Z12.31 TECHNIQUE: Mammograms were interpreted according to the usual protocol including computer analysis w ith CAD system, tomosynthesis and C-view imaging. COMPARISON: No exams were available for comparison FINDINGS: The breasts are composed of scattered fibroglandular densities, Breast Density category B. Left breast: No suspicious masses or suspicious microcalcifications are seen. No skin thickening or abnormal axillary lymph nodes are seen. There has been no significant change from prior exams. Right breast: There has been interval increase in size and increased density of a nodule in the post erior right breast, partially included on the CC view. It shows some spiculation. Spot compression vi ews and ultrasound are recommended for further evaluation. No suspicious microcalcifications. No abno rmalities are seen elsewhere in the breast. IMPRESSION: BI-RADS Category 0 - Assessment Incomplete: Need additional imaging evaluation Breast Density - Category B, scattered fibroglandular densities. A negative radiographic report should not delay biopsy if a dominant or clinically suspicious mass is present. Up to ten percent of cancers are not identified on mammography. A negative report may reinforce clinical impression. Adenosis and dense breasts may obscure an underlying neoplasm. False positive reports average 6 to 10%. Patient will receive a letter notifying them of these results.
== END 2022-05-22 01:42 ==
LOC: DI 01:22
PROVIDERS: PCP Internal Medicine; Visit Provider Family Medicine
DX: Z12.31 Encounter for screening mammogram for malignant neoplasm of breast (principal); R92.8 Other abnormal and inconclusive findings on diagnostic imaging of breast
CPT/HCPCS: 77063; 77067

== ENCOUNTER 2022-05-26 01:59 | Outpatient (CLI) | payer MEDICARE, SELFPAY ==
--- NOTE | 2022-05-26 | DI.US_ITS ---
Exam(s) MG MAMMO SCREEN CALL BACK UNI US BREAST RT COMPLETE EXAM: MG MAMMO SCREEN CALL BACK UNI-RIGHT AND COMPLETE RIGHT BREAST ULTRSOUND CLINICAL HISTORY: F/U ABNL MAMMO, INCREASE IN SIZE AND DENSITY RT BREAST,R92.8. TECHNIQUE: Unilateral spot mammographic images obtained with 3D tomosynthesisand utilizing computer aided detection (CAD). . Complete RIGHT breast Ultrasound was also performed, including all 4 quadrants, the retroareolar ankit on, and the ipsilateral axilla. COMPARISON: Prior mammograms were reviewed. This additional imaging was performed due to findings described on the recent screening mammogram of 05/22/2022. FINDINGS: DIAGNOSTIC MAMMOGRAM: Additional mammographic views performed todayagain reviewed that the borders of this posteriorly loca dalton nodule in the right breast are slightly indistinct. Proceeded with ultrasound. COMPLETE RIGHT BREAST ULTRASOUND: Ultrasound performed today reveals a solitary finding which is at the deep 12 o'clock position corres ponds to the finding on the mammogram. This is a 6 x 6 mm solid nodule with slightly indistinct bord ers, somewhat concerning. Exhibits neutral through transmission. Biopsy recommended.. There are no other significant focal findings in all 4 quadrants of the right breast. Scanning of the ipsilateral axilla reveals no significant adenopathy. IMPRESSION: 1. There is a 6 x 6 millimeter solid nodule posteriorly in the right breast at 12 o'clock position w hich corresponds to the finding on the mammogram. Borders are somewhat indistinct. Ultrasound-guide d biopsy of this finding is recommended. Appropriate follow-up as discussed by myself with the patient today is ultrasound-guided core biopsy. The patient was informed of these findings and recommendations prior to leaving the department today. Report and recommendations called by myself to Dr. Martinez today. BI-RADS Category 4 - Suspicious Abnormality: Biopsy should be considered Breast Density - Category B - Scattered areas of fibroglandular density Breast density Category C or D implies that the patient has dense breast tissue. Dense breast tissue can make it harder to find cancer on a mammogram. Dense breast tissue is also associated with an incr eased risk of breast cancer. This information about the result of the mammogram report was provided to the patient to raise their awareness. Use this report when you speak with the patient about their risks for breast cancer, which includes their family history. At that time, you may recommend additional screening tests (Ultrasoun d or MRI) as these tests may add significant information. A negative radiographic report should not delay biopsy if a dominant or clinically suspicious mass is present. Up to ten percent of cancers are not identified on mammography. A negative report may reinforce clinical impression. Adenosis and dense breasts may obscure an underlying neoplasm. False positive reports average 6 to 10%. Patient will receive a letter notifying them of these results.
== END 2022-05-26 02:19 ==
LOC: DI 01:59
PROVIDERS: PCP Internal Medicine; Visit Provider Family Medicine
DX: Z12.31 Encounter for screening mammogram for malignant neoplasm of breast (principal); R92.8 Other abnormal and inconclusive findings on diagnostic imaging of breast; N63.15 Unspecified lump in the right breast, overlapping quadrants
CPT/HCPCS: 76642; 77063; 77067

== ENCOUNTER 2022-06-02 12:06 | Outpatient (CLI) | payer MEDICARE, SELFPAY ==
--- NOTE | 2022-06-02 11:30 | DI.RAD_ITS ---
Exam(s) XR HIP RT AP LAT ONLY EXAM: XR HIP RT AP LAT ONLY CLINICAL HISTORY: right hip pain. TECHNIQUE: 2D digital imaging was performed. Two images were obtained. AP, lateral and oblique view s were obtained. COMPARISON: No exams were available for comparison FINDINGS: BONES: There are stable post operative changes present. No fracture or dislocation. JOINTS: The orthopedic hardware is in good position. No evidence of hardware loosening. SOFT TISSUE: Normal. IMPRESSION: Stable postoperative changes. DATA REPOSITORY: RADIATION DOSE DELIVERED:
== END 2022-06-02 12:07 | disposition home or self-care (01) ==
LOC: DIORS 12:06
PROVIDERS: PCP Internal Medicine; Referring Provider Internal Medicine; Visit Provider Student in an Organized Health Care Education/Training Program
DX: M25.551 Pain in right hip (principal); Z96.641 Presence of right artificial hip joint
CPT/HCPCS: 20610; 99213; 73502; J1040

== ENCOUNTER → 2022-07-29 09:21 | Outpatient (BNVA) | payer MEDICARE, SELFPAY | PROVIDERS: PCP Family Medicine; Referring Provider Family Medicine; Visit Provider Surgery | DX: K21.9 Gastro-esophageal reflux disease without esophagitis (principal); R68.81 Early satiety | CPT/HCPCS: 99213 ==

== ENCOUNTER 2022-08-06 05:59 | Day surgery (SDC) | payer MEDICARE, SELFPAY ==
--- NOTE | 2022-08-06 06:19 | PGE_ITS ---
Date of Service Date of service: 08/06/22 Time of Service: 06:56 Assessment and Plan Assessment and plan (1) GERD (gastroesophageal reflux disease): Status: Chronic Assessment and plan: Tara is here today for an upper endoscopy. I saw her in the office and we went over the complications of the procedure in detail. I reviewed the complications again today with her. Complications include but are not limited to bleeding, infection, injury to the esophagus stomach or duodenum with the scope, sore throat, and aspiration. Her aspiration risk is elevated due to her severe reflux. The plan is for some Bicitra prior to the procedure to decrease the pH of any acid that she may have in her stomach. She did not have any more questions and wished to proceed. We will proceed with upper endoscopy under sedation with biopsies. Subjective Subjective Interval history since last seen: I saw Tara in [facility] prior to her procedure. We reviewed her symptoms. She continues to have reflux intermittently despite the Protonix 40 mg. She states that she gets a lot of reflux after eating so she has been eating a lot less. She has not had any nausea symptoms or abdominal pain with this. Otherwise she is doing well no new health issues. No upper respiratory infections recently. Exam Const General: comfortable and no acute distress Nutritional Appearance: average body habitus Orientation: alert and oriented x3 HENMT Head: normocephalic and atraumatic Resp Effort & Inspection: normal respiratory effort Auscultation: clear to auscultation bilaterally Cardio Rate: regular rate Rhythm: regular rhythm GI Inspection: normal to inspection Palpation: soft and nontender Time Spent with Patient Time Spent with Patient: <25 minutes Time was spent: obtaining and/or reviewing separately otained hiistory, indepentently interpreting results and counseling the patient
[2022-08-06 06:21] VITALS: BP 136/61; PULSE 61; RESP 16; TEMP 36.1; O2SAT 96
--- NOTE | 2022-08-06 06:21 | W.PM.ENDDOP ---
Date of service: 08/06/22 Time of Service: 07:52 Endoscopy Report DATE OF PROCEDURE: 08/06/22 PRE-OP DIAGNOSIS: GERD POST-OP DIAGNOSIS: other (mild gastritis and reflux esophagitis) PROCEDURE: EGD with biopsies SURGEON: Samantha Castellano ANESTHESIA TYPE: General:No Airway ESTIMATED BLOOD LOSS: 3 PATHOLOGY: other (Bx of antrum, cardia and GE junction) COMPLICATIONS: None DISPOSITION: same day INDICATIONS: Tara is a 81-year-old female who is here today because of ongoing issues with esophageal reflux.? She is on pantoprazole 40 mg daily which helps a little bit but she still has breakthrough symptoms with acid coming into the back of her throat.? We discussed doing an upper endoscopy to look for H. pylori infection as well's ulcers.? I reviewed the procedure in detail using a pamphlet with pictures.? We went over the risks and benefits as well as the complications.? Due to her having acid come up all the way to the back of her throat she is at risk for aspiration which we reviewed.? If she does aspirate she may end up needing to stay a night in the hospital on prednisone and antibiotics.? I will try to mitigate any issues by giving her some Bicitra prior to the procedure.? Risks, benefits and complications have been reviewed. Complications include but are not limited to bleeding, pain, perforation, sore throat, aspiration, and adverse reaction to the medications.? Questions were entertained and answered to their satisfaction and they wished to proceed. No guarantees were given or implied.? Patient does have a good understanding of the risks, benefits and complications of the procedure FINDINGS: There was evidence of reflux esophagitis. The Z-line was irregular and one area not more than about a centimeter in height and 2 cm in width. There is no bleeding from the area. There is no scarring. There is mild inflammation in the stomach as well as multiple benign-appearing fundic gland polyps which could be due to chronic gastritis or due to use of Protonix. There were no ulcers. PROCEDURE DESCRIPTION: After informed consent was obtained the patient was take to the procedure room and placed in a supine position. Monitors were applied and a time out was done. The patients name, date of , procedure type, allergies to medications and metal in their body was reviewed. A bite block was placed and the patient was sedated. She is an ASA 3. Once sedated and comfortable the gastroscope was advanced through the oropharynx which was grossly normal into the esophagus. The proximal and mid-esophagus were normal. In the distal esophagus there was mild inflammation noted. The scope was advanced into the stomach and through the pylorus into the 3rd portion of the duodenum. The duodenum was noted to be normal. The sphincter of Oddi was identified and was normal. The scope was retracted back into the stomach. There is mild inflammation of the mucosa in the cardia. There were benign-appearing fundic gland polyps in the body of the stomach and cardia and fundus. Biopsies were done in the antrum and cardia to rule out H. pylori. There were no ulcers. Biopsy of a couple of the gastric polyps were done. The scope was retroflexed. There was no hiatal hernia noted. The scope was retracted back into the esophagus and biopsies were done of the GE junction to rule out Malone's. The Z line was irregular. There was an area of inflammation and irregularity that was no more than a centimeter in height and width. The GE junction was at 40 cm. The scope was removed and the patient was woken up and taken back to [facility] in stable condition. Follow up: I will have the patient follow-up in 2 weeks so we can go over the pathology results. I will add Carafate to her medicines and see how we are doing in 2 weeks time.
--- NOTE | 2022-08-06 06:22 | W.PM.DSUDISC ---
Date of service: 08/06/22 Time of Service: 08:23 Discharge Plan Disposition Patient Disposition: Home Condition: Stable Discharge Details Reason For Visit: GERD Attending Provider: Samantha Castellano Primary Care Provider: Abbie Shannon Home Meds and New Rx's Prescriptions: New sucralfate [Carafate] 1 gram tablet 1 g PO QACHS Qty: 56 0RF Rx Instructions: Please take 1 tab 30 minutes before meals and at bedtime. You can dissolve the tablet in a little bit of water. Continued metoprolol succinate 50 MG tablet extended release 24 hr 50 mg PO DAILY diltiazem HCl 240 MG tablet extended release 24 hr 240 mg PO DAILY pantoprazole 40 mg tablet,delayed release (DR/EC) 40 mg PO DAILY letrozole 2.5 mg tablet 2.5 mg PO DAILY potassium chloride 10 MEQ tablet extended release 10 meq PO DAILY levothyroxine 25 MCG tablet 25 mcg PO DAILY indapamide 1.25 MG tablet 1.25 mg PO DAILY triamcinolone acetonide 15 GM cream 1 applic Topical PRN PRN (Reason: Itching) cephalexin 500 MG capsule 2,000 mg PO .BEFORE DENTAL APPT PRN losartan 25 mg tablet 1 tab PO HS cholecalciferol (vitamin D3) [Vitamin D3] 25 mcg (1,000 unit) capsule 3 cap PO DAILY Patient Comments: Take 1 capsule by mouth once a day acetaminophen 500 mg Tablet 1,000 mg PO BID PRN Xarelto 20 mg tablet 20 mg PO DAILY Qty: 30 0RF Rx Instructions: must administer with evening meal Begin after 15 mg for 21 days has been completed Discharge Instructions Instructions: Gastritis (DC), Diet for Stomach Ulcers and Gastritis (ED), GERD (Gastroesophageal Reflux Disease) (DC), Gastric Polyps (DC) Additional Instructions: Findings: Inflammation of the stomach and esophagus Gastric polyps that are most likely benign New medications: Carafate 1 tab 30 minutes before meals and at bedtime Continue Protonix at night New Diet: Low acid- please see the printout Follow up: 2 weeks in the office to review results Please call if you develop: fevers >101.5 Nausea or Vomiting Abdominal pain that is not transient Rectal bleeding that is more then a tbsp A hard abdomen and inability to pass gas Cough and shortness of breath DAY SURGERY UNIT POST ENDOSCOPY INSTRUCTIONS Instructions for everyone who is given Anesthesia: For your safety, please do the following for the next 24 Hours: a. Do not drive or operate dangerous equipment b. Do not drink alcohol beverages or use any recreational drugs for the first 24 hours or while taking pain medications. The medications in your body may have a reaction that can be dangerous. c. Do not make any important decisions or sign any important papers 1. Generally there are no restrictions on your activity after a day or so has gone by, but you may feel a bit fatigued for a few days. 2. After you arrive home you may have a light meal and return to a normal diet as you can tolerate it without feeling sick to your stomach. 3. After surgery, you may feel pain or discomfort. This should be only transient, but if it persists please contact your doctor. 4. If there are any questions regarding the findings of your procedure, please feel free to contact your doctor. 6. If you are unable to contact your doctor with a problem, contact the hospital at [phone]. 7. Continue all your regular medications unless directed otherwise. I understand the above instructions and have no questions. Signature of Patient or Responsible Adult Escort Date/Time Name of Responsible Adult Escort Signature of Nurse Date/Time Referrals: Samantha Castellano MD [ [facility] STAFF PHYSICIAN] - 08/18/22 9:00 am Activity:: Activity as Tolerated Shower/Bathe:: 24 hours Diet:: low acid Discharge Orders Discharge Orders: Discharge Order (Routine); Ordered 08/06/22 Ordered By: Samantha Castellano DS: Diagnosis Discharge Diagnosis (1) GERD (gastroesophageal reflux disease): Status: Chronic Asessment and Plan: Patient is seen and examined after their endoscopy. Patient doesnt have a sore throat. They have been able to tolerate liquids. They do not have any Nausea or Vomiting. They are not having any chest pain or shortness of breath. They have been able to pass gas and are not having any abdominal pain or distention. they have not vomited any blood. The vital signs have been stable-see nursing notes. We discussed findings on their endoscopy We reviewed the importance of lifestyle modifications- see diet recommendations We reviewed any new medications that the patient may be prescribed- see medicine reconciliation. Patient will follow up in the office- see discharge instructions Patient was given explicit instructions for emergency follow up post endoscopy- see discharge instructions Patient verbalized understanding and was discharged in stable and satisfactory condition. See nursing notes. (2) Gastritis: Status: Acute (3) Esophagitis: Status: Acute
[2022-08-06] MEDS: Lactated Ringers 1,000 ML 80 ML IV (06:36)
--- NOTE | 2022-08-06 06:57 | ANES.PREOP_ITS ---
General Info Date of Service Date Performed: 08/06/22 Height: 5 ft 5 in Weight: 89.2 kg Body Mass Index (BMI): 32.7 Surgical Procedure: Operation Date: 08/06/22 07:35 Proposed Procedure Side Surgeon p Gastroscopy Samantha Castellano MD Meds Allergies and Home Medications Allergies Allergy/AdvReac Type Severity Reaction Status Date / Time iodine Allergy Severe itching, Unverified 08/06/22 06:37 rash, skin irritation morphine sulfate Allergy Severe itching, Unverified 08/06/22 06:37 [From MS Contin] rash, skin irritation sulfamethoxazole Allergy Severe itching, Unverified 08/06/22 06:37 [From Bactrim] rash, skin irritation trimethoprim [From Bactrim] Allergy Severe itching, Unverified 08/06/22 06:37 rash, skin irritation hydrochlorothiazide Allergy Mild Verified 08/06/22 06:37 [From Dyazide] lisinopril Allergy Mild Verified 08/06/22 06:37 spironolactone Allergy Mild Verified 08/06/22 06:37 triamterene [From Dyazide] Allergy Mild Verified 08/06/22 06:37 titanium dioxide Allergy Mild Uncoded 08/06/22 06:37 Home Medication Medication Instructions Recorded metoprolol succinate 50 mg 50 mg PO DAILY 09/06/12 tablet,extended release 24 hr cephalexin 500 mg capsule 2,000 mg PO .BEFORE DENTAL APPT PRN 01/10/16 indapamide 1.25 mg tablet 1.25 mg PO DAILY 01/10/16 levothyroxine 25 mcg tablet 25 mcg PO DAILY 01/10/16 potassium chloride 10 mEq 10 meq PO DAILY 01/10/16 tablet,extended release triamcinolone acetonide 0.1 % 1 applic topical PRN PRN Itching 01/10/16 topical cream diltiazem HCl 240 mg 240 mg PO DAILY 09/05/16 tablet,extended release 24 hr acetaminophen 500 mg tablet 1,000 mg PO BID PRN 02/21/22 cholecalciferol (vitamin D3) 25 3 cap PO DAILY 02/21/22 mcg (1,000 unit) capsule (Vitamin D3) losartan 25 mg tablet 1 tab PO HS 02/21/22 rivaroxaban 20 mg tablet (Xarelto) 20 mg PO DAILY #30 tabs 02/22/22 pantoprazole 40 mg tablet,delayed 40 mg PO DAILY 05/20/22 release letrozole 2.5 mg tablet 2.5 mg PO DAILY 07/24/22 Current Visit Medications: Current Medications Generic Name Dose Route Start Last Admin Trade Name Kim PRN Reason Stop Dose Admin Ringer's Solution 1,000 mls @ 80 mls/hr 08/06/22 06:00 08/06/22 06:36 IV 09/04/22 23:59 80 mls/hr INFUSION HEIDE Administration IV Miscellaneous Supplies 1 each 08/06/22 06:00 Iv Access IV 09/04/22 23:59 DIRECTED HEIDE Ondansetron HCl 4 mg 08/06/22 06:23 Ondansetron 4 Mg/2 Ml Vial IVP 09/05/22 06:22 Q4H PRN PRN Nausea / Vomiting Sodium Chloride 0 ml 08/06/22 06:00 Normal Saline Flush 10 Ml Syr IV 09/04/22 23:59 PRN PRN Sodium Chloride 0 ml 08/06/22 06:00 Normal Saline 10 Ml Vial IJ 09/04/22 23:59 DIRECTED PRN Sterile Water 0 ml 08/06/22 06:00 Water,Injection,Sterile 10 Ml Vial IJ 09/04/22 23:59 DIRECTED PRN PFSH Active Problems Active Problems: Problem Status Onset Code Early satiety R68.81 Breast cancer C50.919 Abdominal pain R10.9 GERD (gastroesophageal reflux disease) K21.9 Nausea R11.0 Nocturia R35.1 Pulmonary embolism I26.99 Trochanteric bursitis of right hip M70.61 Medical History Medical History Essential hypertension Fatty liver Hypercholesterolemia Hypothyroidism, unspecified IBS (irritable bowel syndrome) Lumbar back pain Obesity Osteoporosis Vertigo Surgical History Surgical History Abdominal hysterectomy Arthroplasty of knee Colonoscopy - IV Sedation History of total left hip replacement w/ revision as 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 Fay History of total right knee replacement (TKR) Open Carpal Tunnel release Tobacco Smoking/Tobacco Use Status: Never Alcohol Alcohol Intake: never Substance Use Substance use: Never Substance use type: does not use Vital Signs and Lab Results Vital Signs Most Recent Vital Signs in EMR: Most Recent Vital Signs Temp Pulse Resp BP Pulse Ox 36.1 C L 61 16 136/61 96 08/06/22 06:21 08/06/22 06:21 08/06/22 06:21 08/06/22 06:21 08/06/22 06:21 Lab Results Blood Type / Crossmatch: No Data to Display Complete Blood Count: No Data to Display Complete Metabolic Panel: No Data to Display Liver Function Panel: No Data to Display Coagulation Panel: No Data to Display Cardiac Panel: No Data to Display Arterial Blood Gas: No Data to Display Venous Blood Gas: No Data to Display Pancreas Panel: No Data to Display Thyroid Panel: No Data to Display Infectious Disease: No Data to Display Blood Cultures: No Data to Display Toxicology Panel: No Data to Display Imaging and Studies Imaging and Studies Study information below may be from another EMR and interpreted by another provider. Please see original notes in EMR for more complete details. EKG Summary: 02/21/22: Exam: Resting ECG Reason for Exam: Dyspnea Patient Location: E HR:69 bpm ECG Measurements Heart Rate 69 AXIS ME 186 P 53 QRSd 87 QRS -4 QT 389 T43 QTc 418 Conclusion Sinus rhythm...normal P axis, V-rate 60- 99 sinus rhythm, normla axis, normal intervals, non ischemic Stress Test Summary: 09/20/19: Stress ECG Conclusion 1. Resting electrocardiogram was normal. 2. Patient underwent pharmacologic stress. Peak heart rate was 58% of predicted for age. There were no electrocardiographic changes noted. Elec trocardiographically the test was nondiagnostic due to inadequate heart rate. 3. The patient had chest pain prior to the test which persisted 4. There were no significant dysrhythmias Critical Notification Critical Value: No MPI Conclusion Myocardial perfusion appeared within normal limits without evidence of infarction or superimposed ischemia Ejection fraction was 67% Anesthesia Assessment and Plan Anesthesia History Personal History: No History of Anesthesia Complications Family History: No Family History of Anesthesia Complications Exercise Tolerance Exercise Tolerance: Metabolic Equivalents>4 Cardiac & Pulmonary Exam Cardiac Exam: Normal S1/S2 Heart Sounds Pulmonary Exam: Clear Bilateral Breath Sounds Implantable Cardiac Device Does patient have a Pacemaker or an ICD?: No Airway Exam Known Difficult Airway: No Mallampati Class: 2 Mouth Opening: Normal (> 3cm) Thyromental Distance: Greater than 3 cm Neck Range of Motion: Full ROM Neck Circumference: Normal Teeth Condition: Normal Dentition ASA Classification ASA Score: ASA 3 Emergency Case?: No NPO Status NPO Status: NPO Clears >2 hours, Solids >8 hours Anesthesia Plan Resuscitation Status: Full Code Anesthesia Technique: General Anesthesia Airway Planned: Natural Airway Monitors Used: Standard Monitors
[2022-08-06 07:01] VITALS: BMI 32.7
[2022-08-06] MEDS: Sodium Citrate 30 ML CUP PO (07:15)
--- NOTE | 2022-08-06 07:34 | STOM_PTH ---
PATIENT: Tara Aguilar LOC: [facility] U#:[id number] AGE/SX: 81/F ROOM: RE08/06/[address]: Samantha Castellano MD : [id number] BED: DIS: 08/06/2022 SPEC #: [id number] RECD: 08/06/22 10:28 STATUS: CARY REQ #: [id number] MERRITT: 08/06/22 07:[address]: Samantha Castellano DEPT: Surgical Specimen RECD BY: Leyla Clark ENTERED: 08/06/22 10:29 SP TYPE: STOMACH OTHR DR: Abbie Shannon Tissues: 1 - STOMACH BIOPSY 2 - STOMACH BIOPSY 3 - ESOPHAGUS BIOPSY Procedures: GROSS AND MICRO LEVEL 4 Comments: [id number]
[2022-08-06 07:45] VITALS: BP 109/46; PULSE 67; RESP 16; TEMP 36.4; O2SAT 96
--- NOTE | 2022-08-06 08:00 | W.ANESPOSTOP ---
Postoperative Evaluation Date, Time and Location Date Performed: 08/06/22 Time Performed: 08:00 Patient Location: Day Surgery Unit Vital Signs Most Recent Imported Vital Signs: Most Recent Vital Signs Temp Pulse Resp BP Pulse Ox 36.4 C L 67 16 109/46 L 96 08/06/22 07:45 08/06/22 07:45 08/06/22 07:45 08/06/22 07:45 08/06/22 07:45 Pain Score Most Recent Pain Score: Most Recent Pain Score Pain Level 0 08/06/22 07:45 Assessment Mental Status: Awake (Alert & Oriented to Patient Baseline) Airway and Respiratory Function: Patent airway with normal (patient baseline) respiratory exam Cardiovascular Function: Hemodynamically Stable Hydration Status: Adequately Hydrated Nausea & Vomiting: No Nausea or Vomiting Pain: Pt. Denies Any Pain Peripheral Nerve Block: Patient did not receive a nerve block
[2022-08-06 08:15] VITALS: BP 117/50; PULSE 56; RESP 16; TEMP 36.5; O2SAT 96
[2022-08-06 08:30] VITALS: BP 139/50; PULSE 57; RESP 18
== END 2022-08-06 09:10 | disposition home or self-care (01) ==
PROVIDERS: PCP Family Medicine; Visit Provider Surgery
PROC: 0DJ68ZZ Inspection of Stomach, Via Natural or Artificial Opening Endoscopic (ICD-10-PCS; CPT 43235; principal; 2022-08-06 07:30)
DX: K21.00 Gastro-esophageal reflux disease with esophagitis, without bleeding (principal); K29.70 Gastritis, unspecified, without bleeding; K31.7 Polyp of stomach and duodenum; K22.89 Other specified disease of esophagus
CPT/HCPCS: 43239; 88305; J2704

== ENCOUNTER → 2022-08-18 08:52 | Outpatient (BNVA) | payer MEDICARE, SELFPAY | PROVIDERS: PCP Family Medicine; Referring Provider Family Medicine; Visit Provider Surgery | DX: K29.70 Gastritis, unspecified, without bleeding (principal); K20.90 Esophagitis, unspecified without bleeding; T78.40XA Allergy, unspecified, initial encounter | CPT/HCPCS: 99212; 99213 ==

== ENCOUNTER → 2022-11-20 03:12 | Outpatient (CLI) | payer MEDICARE, SELFPAY ==
--- NOTE | 2022-11-20 14:30 | DI.DEXA_ITS ---
Exam(s) XR DEXA BONE DENSITY W/WO CORINNE EXAM: XR DEXA BONE DENSITY W/WO CORINNE CLINICAL HISTORY: LONG-TERM CURRENT USE OF AROMATASE INHIBITOR, Z79.811 TECHNIQUE: Routine DEXA evaluation of the lumbar spine, hip, or forearm. COMPARISON: No exams were available for comparison FINDINGS: Performed on a Hologic unit. Lateral image: No compression fracture evident. Lumbar Spine total T-score: 2.4 Hip total T-score:Not done Independent reading at the level of the femoral neck yields T-score of not done Forearm total T-score: -1.0 IMPRESSION: Bone mineral density measures in the normal range. Fracture risk is low. Note: Any spine fracture indicates 5x risk for subsequent spine fracture and 2x risk for subsequent h ip fracture. World Health Organization criteria for BMD interpretation classify patients: Normal...... T- Score at or above -1.0 Osteopenic... T- Score between -1.0 and -2.5 Osteoporosis... T-Score at or below -2.5
== END ==
PROVIDERS: PCP Family Medicine; Visit Provider Internal Medicine Hematology & Oncology
DX: Z79.811 Long term (current) use of aromatase inhibitors (principal); Z13.820 Encounter for screening for osteoporosis
CPT/HCPCS: 77080

== ENCOUNTER 2022-12-12 20:27 | Outpatient (REF) | payer MEDICARE, SELFPAY ==
[2022-12-12 21:36] LABS: Anion Gap 13.7 mmol/L (3-11); BUN 26 mg/dL (7-18); CO2 23.3 mmol/L (21.0-32.0); CREATININE 1.1 mg/dL (0.55-1.02); Chloride 104 mmol/L (98-107); Glucose 119 mg/dL (74-106); Potassium 3.5 mmol/L (3.5-5.1); Sodium 141 mmol/L (136-145)
== END 2022-12-12 20:28 | disposition home or self-care (01) ==
LOC: NCHCN 20:27
PROVIDERS: PCP Family Medicine; Visit Provider Family Medicine
DX: I10 Essential (primary) hypertension (principal)
CPT/HCPCS: 80048

== ENCOUNTER 2023-09-11 15:07 | Outpatient (REF) | payer MEDICARE, SELFPAY ==
[2023-09-11 15:13] LABS: Abs Immature Grans 0.03 10^3/uL (0.0-0.06); Absolute Basophil Count 0.06 10^3/uL (0.0-0.2); Absolute Eosinophil Count 0.26 10^3/uL (0.0-0.7); Absolute Lymphocyte Count 1.53 10^3/uL (1.2-3.4); Absolute Monocyte Count 0.39 10^3/uL (0.1-0.8); Absolute Neutrophil Count 4.32 10^3/uL (1.2-6.7); Basophils % 0.9 %; Eosinophils % 3.9 %; HCT 32.4 % (36.0-46.0); HGB 10.6 g/dL (11.2-15.7); Immature Grans % 0.5 %; Lymphocytes % 23.2 %; MCH 29.1 pg (27.0-33.0); MCHC 32.7 % (32.0-36.0); MCV 89 fL (80-95); MPV 9.6 fL (8.0-11.0); Monocytes % 5.9 %; Neutrophils % 65.6 %; Platelet Count 344 10^3/uL (130-400); RBC 3.64 10^6/uL (3.93-5.22); RDW 12.3 % (11.7-14.6); RDW-SD 39.9 fL; WBC 6.59 10^3/uL (4.4-10.8)
[2023-09-11 16:20] LABS: Anion Gap 11.4 mmol/L (3-11); BUN 20 mg/dL (7-18); CO2 26.6 mmol/L (21.0-32.0); CREATININE 1.1 mg/dL (0.55-1.02); Calcium 9.6 mg/dL (8.5-10.1); Chloride 105 mmol/L (98-107); Estimated GFR 50.48 (mL/min/1.73m2); Ferritin 27 ng/mL (8-252); Glucose 105 mg/dL (74-106); Magnesium 1.6 mg/dL (1.8-2.4); Potassium 3.9 mmol/L (3.5-5.1); Sodium 143 mmol/L (136-145); TSH 2.55 uIU/Ml (0.36-3.74)
[2023-09-11 16:58] LABS: Iron 37 ug/dL (50-170); Total Iron Binding Capacity 408 ug/dL (250-450); Transferrin Sat 9 % (15-50)
[2023-09-11 18:56] LABS: FREE T4 1.09 ng/dL (0.76-1.46)
== END 2023-09-11 15:08 | disposition home or self-care (01) ==
LOC: NCHCN 15:07
PROVIDERS: PCP Family Medicine; Visit Provider Family Medicine
DX: E03.9 Hypothyroidism, unspecified (principal); I10 Essential (primary) hypertension; R68.89 Other general symptoms and signs
CPT/HCPCS: 80048; 82728; 83540; 83550; 83735; 84436; 84439; 84443; 85025

== ENCOUNTER 2023-11-19 15:54 | Outpatient (REF) | payer MEDICARE, SELFPAY ==
[2023-11-19 15:50] LABS: HGB 10.6 g/dL (11.2-15.7); MCH 28.3 pg (27.0-33.0); MCHC 31.2 % (32.0-36.0); MCV 91 fL (80-95); MPV 9.5 fL (8.0-11.0); Platelet Count 335 10^3/uL (130-400); RBC 3.75 10^6/uL (3.93-5.22); RDW 13.9 % (11.7-14.6); WBC 7.09 10^3/uL (4.4-10.8)
[2023-11-19 16:14] LABS: Iron 26 ug/dL (50-170); Total Iron Binding Capacity 397 ug/dL (250-450); Transferrin Sat 7 % (15-50)
[2023-11-19 16:26] LABS: Ferritin 31 ng/mL (8-252)
[2023-11-19 16:36] LABS: Magnesium 1.8 mg/dL (1.8-2.4)
== END 2023-11-19 15:55 | disposition home or self-care (01) ==
LOC: NCHCN 15:54
PROVIDERS: PCP Family Medicine; Visit Provider Family Medicine
DX: D50.9 Iron deficiency anemia, unspecified (principal)
CPT/HCPCS: 85027; 82728; 83540; 83550; 83735

== ENCOUNTER 2024-04-19 11:18 | Outpatient (REF) | payer MEDICARE, SELFPAY ==
[2024-04-19 14:33] LABS: HCT 38.9 % (36.0-46.0); HGB 12.4 g/dL (11.2-15.7); MCH 29.2 pg (27.0-33.0); MCHC 31.9 % (32.0-36.0); MCV 92 fL (80-95); MPV 9.2 fL (8.0-11.0); Platelet Count 308 10^3/uL (130-400); RBC 4.24 10^6/uL (3.93-5.22); RDW 14.1 % (11.7-14.6); RDW-SD 47.5 fL; WBC 7.76 10^3/uL (4.4-10.8)
[2024-04-19 14:51] LABS: Iron 188 ug/dL (50-170); Total Iron Binding Capacity 378 ug/dL (250-450); Transferrin Sat 50 % (15-50)
[2024-04-19 15:10] LABS: Anion Gap 9.1 mmol/L (3-11); BUN 24 mg/dL (7-18); CO2 28.9 mmol/L (21.0-32.0); CREATININE 1.1 mg/dL (0.55-1.02); Calcium 9.8 mg/dL (8.5-10.1); Chloride 104 mmol/L (98-107); Estimated GFR 50.48 (mL/min/1.73m2); Glucose 120 mg/dL (74-106); Magnesium 1.7 mg/dL (1.8-2.4); Potassium 4.2 mmol/L (3.5-5.1); Sodium 142 mmol/L (136-145)
== END 2024-04-19 11:19 | disposition home or self-care (01) ==
LOC: NCHCN 11:18
PROVIDERS: PCP Family Medicine; Visit Provider Family Medicine
DX: D50.9 Iron deficiency anemia, unspecified (principal); I10 Essential (primary) hypertension; E83.42 Hypomagnesemia
CPT/HCPCS: 80048; 85027; 83540; 83550; 83735

== ENCOUNTER → 2024-05-26 10:43 | Outpatient (BNVA) | payer MEDICARE, SELFPAY | PROVIDERS: PCP Family Medicine; Referring Provider Family Medicine; Visit Provider Physical Therapy Assistant | DX: Z12.11 Encounter for screening for malignant neoplasm of colon (principal) ==

== ENCOUNTER 2024-06-10 09:08 | Day surgery (SDC) | payer MEDICARE, SELFPAY ==
[2024-06-10 09:12] VITALS: BP 166/86; PULSE 105; RESP 18; TEMP 36.6; O2SAT 99
--- NOTE | 2024-06-10 09:30 | W.COLOREPORT ---
Date of service: 06/10/24 Time of Service: 09:32 Colonoscopy Report Procedure Description: PROCEDURES PERFORMED: 1. Colonoscopy with cold forcep polypectomy x4 PREOPERATIVE DIAGNOSIS: Surveillance colonoscopy, heme+ stool POSTOPERATIVE DIAGNOSIS: Mild pandiverticulosis, colon polyps, grade 2 internal hemorrhoids SURGEON: Inocente Stout MD ANESTHESIA: Does not take propofol. Stayed awake for most of the procedure. Juli Margaret monitoring. INDICATION FOR PROCEDURE: the patient is a 83 yo woman who had a heme positive stool test. Last colonoscopy was 20+ years ago. No family history of colon cancer. FINDINGS: Normal terminal ileum. The cecum polyp was found and removed with cold forceps technique as was a polyp in the ascending colon and 2 polyps in the transverse colon. They were all sessile and about 2-3 mm in size. There are diverticular changes present throughout the entire colon. No active inflammation anywhere and no fibrosis or stricture. Grade 2 internal hemorrhoids are present. SURVEILLANCE interval/FOLLOW-UP: Because of finding 4 polyps today I think a repeat colonoscopy in 3 years is warranted. SPECIMENS: Yes EBL: Minimal COMPLICATIONS: None QUALITY of prep: Excellent Procedure in detail: The patient gave written consent and was in agreement with the indications, the potential risks as well as the benefits of the procedure. They were taken to the endoscopy suite and laid in the left lateral decubitus position. A timeout was performed and some minimal, non-propofol anesthesia was administered which was tolerated well. I started the procedure. Digital rectal and visual examination was performed and grossly within normal limits. A well-lubricated flexible colonoscope was then introduced and passed without any notable difficulty all the way to the cecum identified by the ileocecal valve and the appendiceal orifice. The terminal ileum was identified and briefly intubated and looked normal. The scope was then slowly withdrawn with the above-noted findings. The patient tolerated the procedure well and was taken to the PACU in hemodynamically stable condition.
[2024-06-10] MEDS: Lactated Ringers 1,000 ML 80 ML IV (09:32)
--- NOTE | 2024-06-10 09:32 | W.PM.DSUDISC ---
Date of service: 06/10/24 Discharge Plan Disposition Patient Disposition: Home Condition: Good Discharge Details Attending Provider: Tee Stout Primary Care Provider: Abbie Shannon Home Meds and New Rx's Prescriptions: No Action famotidine [Pepcid] 40 mg tablet 40 mg PO QAM Qty: 90 3RF Rx Instructions: Take 1 hour after taking your levothyroxin Xarelto 20 mg tablet 10 mg PO DAILY Rx Instructions: must administer with evening meal Begin after 15 mg for 21 days has been completed bisacodyl [Dulcolax (bisacodyl)] 5 mg tablet,delayed release (DR/EC) 5 mg PO ONCE Qty: 4 0RF Rx Instructions: Take per colonoscopy instructions provided by ordering providers office polyethylene glycol 3350 17 gram/dose powder 17 g PO ONCE Qty: 238 0RF Rx Instructions: Take per colonoscopy instructions provided by ordering providers office metoprolol succinate 50 MG tablet extended release 24 hr 50 mg PO DAILY diltiazem HCl 240 MG tablet extended release 24 hr 240 mg PO DAILY letrozole 2.5 mg tablet 2.5 mg PO HS multivitamin Tablet 1 tab PO DAILY levothyroxine 25 MCG tablet 25 mcg PO DAILY indapamide 1.25 MG tablet 1.25 mg PO DAILY triamcinolone acetonide 15 GM cream 1 applic Topical PRN PRN (Reason: Itching) cephalexin 500 MG capsule 2,000 mg PO .BEFORE DENTAL APPT PRN losartan 25 mg tablet 1 tab PO HS cholecalciferol (vitamin D3) [Vitamin D3] 25 mcg (1,000 unit) capsule 3 cap PO DAILY Patient Comments: Take 1 capsule by mouth once a day acetaminophen 500 mg Tablet 1,000 mg PO BID PRN Discharge Instructions Additional Instructions: FINDINGS: Stand Alone Forms: Anesthesia Discharge Inst., Colonoscopy Post Instructions, Jaycee Duff (RAJ) Activity:: Activity as Tolerated Diet:: As Tolerated
--- NOTE | 2024-06-10 09:33 | W.PM.DSUDISC ---
Date of service: 06/10/24 Discharge Plan Disposition Patient Disposition: Home Condition: Good Discharge Details Attending Provider: Tee Stout Primary Care Provider: Abbie Shannon Home Meds and New Rx's Prescriptions: No Action famotidine [Pepcid] 40 mg tablet 40 mg PO QAM Qty: 90 3RF Rx Instructions: Take 1 hour after taking your levothyroxin Xarelto 20 mg tablet 10 mg PO DAILY Rx Instructions: must administer with evening meal Begin after 15 mg for 21 days has been completed bisacodyl [Dulcolax (bisacodyl)] 5 mg tablet,delayed release (DR/EC) 5 mg PO ONCE Qty: 4 0RF Rx Instructions: Take per colonoscopy instructions provided by ordering providers office polyethylene glycol 3350 17 gram/dose powder 17 g PO ONCE Qty: 238 0RF Rx Instructions: Take per colonoscopy instructions provided by ordering providers office metoprolol succinate 50 MG tablet extended release 24 hr 50 mg PO DAILY diltiazem HCl 240 MG tablet extended release 24 hr 240 mg PO DAILY letrozole 2.5 mg tablet 2.5 mg PO HS multivitamin Tablet 1 tab PO DAILY levothyroxine 25 MCG tablet 25 mcg PO DAILY indapamide 1.25 MG tablet 1.25 mg PO DAILY triamcinolone acetonide 15 GM cream 1 applic Topical PRN PRN (Reason: Itching) cephalexin 500 MG capsule 2,000 mg PO .BEFORE DENTAL APPT PRN losartan 25 mg tablet 1 tab PO HS cholecalciferol (vitamin D3) [Vitamin D3] 25 mcg (1,000 unit) capsule 3 cap PO DAILY Patient Comments: Take 1 capsule by mouth once a day acetaminophen 500 mg Tablet 1,000 mg PO BID PRN Discharge Instructions Additional Instructions: FINDINGS: Some polyps were found today. Diverticular disease was again seen today. Grade 2 internal hemorrhoids are present. Any of these can be the cause of your stool testing positive for blood. The good news is that there is no colon cancer anywhere. We do recommend that you have another colonoscopy in 3 years because of finding so many polyps today. You can discuss further with your PCP in 3 years from now. Stand Alone Forms: Anesthesia Discharge Inst., Colonoscopy Post Instructions, Jaycee Duff ([facility]U) Activity:: Activity as Tolerated Diet:: As Tolerated Discharge Orders Discharge Orders: Discharge Order (Routine); Ordered 06/10/24 Ordered By: Tee Stout
--- NOTE | 2024-06-10 09:33 | W.ANESPRE ---
General Info Date of Service Date Performed: 06/10/24 Height: 5 ft 7 in Weight: 89.9 kg Body Mass Index (BMI): 31.0 Surgical Procedure: Operation Date: 06/10/24 09:50 Proposed Procedure Side Surgeon p Colonoscopy Tee Stout MD Actual Procedure Side Surgeon p Colonoscopy Not Applicable Tee Stout MD Meds Allergies and Home Medications Allergies Allergy/AdvReac Type Severity Reaction Status Date / Time iodine Allergy Severe itching, Verified 06/10/24 09:30 rash, skin irritation morphine sulfate (From MS Allergy Severe itching, Verified 06/10/24 09:30 Contin) rash, skin irritation sulfamethoxazole (From Allergy Severe itching, Verified 06/10/24 09:30 Bactrim) rash, skin irritation trimethoprim (From Bactrim) Allergy Severe itching, Verified 06/10/24 09:30 rash, skin irritation propofol Allergy Intermediate Hives Verified 06/10/24 09:30 sucralfate (From Carafate) Allergy Intermediate Hives Verified 06/10/24 09:30 hydrochlorothiazide (From Allergy Mild Unknown Verified 06/10/24 09:30 Dyazide) lisinopril Allergy Mild rash Verified 06/10/24 09:30 spironolactone Allergy Mild Unknown Verified 06/10/24 09:30 triamterene (From Dyazide) Allergy Mild Unknown Verified 06/10/24 09:30 titanium dioxide Allergy Mild Unknown Uncoded 06/10/24 09:30 Home Medication ?Medication ?Instructions ?Recorded metoprolol succinate 50 mg 50 mg PO DAILY 09/06/12 tablet,extended release 24 hr cephalexin 500 mg capsule 2,000 mg PO .BEFORE DENTAL APPT PRN 01/10/16 indapamide 1.25 mg tablet 1.25 mg PO DAILY 01/10/16 levothyroxine 25 mcg tablet 25 mcg PO DAILY 01/10/16 triamcinolone acetonide 0.1 % 1 applic topical PRN PRN Itching 01/10/16 topical cream diltiazem HCl 240 mg 240 mg PO DAILY 09/05/16 tablet,extended release 24 hr acetaminophen 500 mg tablet 1,000 mg PO BID PRN 02/21/22 cholecalciferol (vitamin D3) 25 3 cap PO DAILY 02/21/22 mcg (1,000 unit) capsule (Vitamin D3) losartan 25 mg tablet 1 tab PO HS 02/21/22 letrozole 2.5 mg tablet 2.5 mg PO HS 07/24/22 famotidine 40 mg tablet (Pepcid) 40 mg PO QAM #90 tabs 08/18/22 multivitamin 1 tab PO DAILY 05/17/24 bisacodyl 5 mg tablet,delayed 5 mg PO ONCE #4 tabs 05/26/24 release (Dulcolax (bisacodyl)) polyethylene glycol 3350 17 17 g PO ONCE #238 grams 05/26/24 gram/dose oral powder rivaroxaban 20 mg tablet (Xarelto) 10 mg PO DAILY 05/26/24 Current Visit Medications: Current Medications Generic Name Dose Route Start Last Admin Trade Name Freq PRN Reason Stop Dose Admin Ringer's Solution 1,000 mls @ 80 mls/hr 06/10/24 06:00 06/10/24 09:32 IV 06/10/24 23:59 80 mls/hr INFUSION HEIDE Administration IV Miscellaneous Supplies 1 each 06/10/24 06:00 Iv Access IV 06/10/24 23:59 DIRECTED HEIDE Sodium Chloride 0 ml 06/10/24 06:00 Normal Saline Flush 10 Ml Syr IV 06/10/24 23:59 PRN PRN Sodium Chloride 0 ml 06/10/24 06:00 Normal Saline 10 Ml Vial IJ 06/10/24 23:59 DIRECTED PRN Sterile Water 0 ml 06/10/24 06:00 Water,Injection,Sterile 10 Ml Vial IJ 06/10/24 23:59 DIRECTED PRN PFSH Active Problems Active Problems: Problem Status Onset Code Occult blood detected in feces by immunoassay Acute R19.5 Allergic reaction Acute T78.40XA Esophagitis Acute K20.90 Gastritis Acute K29.70 Early satiety Acute R68.81 Breast cancer Chronic ~2022 C50.919 Abdominal pain Acute R10.9 Nausea Acute R11.0 GERD (gastroesophageal reflux disease) Chronic K21.9 Nocturia Acute R35.1 Pulmonary embolism Chronic I26.99 Trochanteric bursitis of right hip Acute M70.61 Medical History Medical History IBS (irritable bowel syndrome) Hypothyroidism, unspecified Fatty liver Vertigo Lumbar back pain Obesity Hypercholesterolemia Osteoporosis Essential hypertension Surgical History Surgical History Hx of shoulder surgery H/O esophagogastroduodenoscopy (~08/06/22) History of total left knee replacement (TKR) History of total right knee replacement (TKR) History of total left hip replacement w/ revision as well History of total right hip replacement (11/21/11) Dr. Fay Open Carpal Tunnel release Abdominal hysterectomy Colonoscopy - IV Sedation Arthroplasty of knee Tobacco Smoking/Tobacco Use Status: Never Alcohol Alcohol Intake: never Substance Use Substance use: Never Substance use type: does not use Vital Signs and Lab Results Vital Signs Most Recent Vital Signs in EMR: Most Recent Vital Signs Temp Pulse Resp BP Pulse Ox 36.6 C 105 H 18 166/86 H 99 06/10/24 09:12 06/10/24 09:12 06/10/24 09:12 06/10/24 09:12 06/10/24 09:12 Lab Results Blood Type / Crossmatch: No Data to Display Complete Blood Count: No Data to Display Complete Metabolic Panel: No Data to Display Liver Function Panel: No Data to Display Coagulation Panel: No Data to Display Cardiac Panel: No Data to Display Arterial Blood Gas: No Data to Display Venous Blood Gas: No Data to Display Pancreas Panel: No Data to Display Thyroid Panel: No Data to Display Infectious Disease: No Data to Display Blood Cultures: No Data to Display Toxicology Panel: No Data to Display Imaging and Studies Imaging and Studies Study information below may be from another EMR and interpreted by another provider. Please see original notes in EMR for more complete details. EKG Summary: 02/21/22: Exam: Resting ECG Reason for Exam: Dyspnea Patient Location: E HR:69 bpm ECG Measurements Heart Rate 69 AXIS NC 186 P 53 QRSd 87 QRS -4 QT 389 T43 QTc 418 Conclusion Sinus rhythm...normal P axis, V-rate 60- 99 sinus rhythm, normla axis, normal intervals, non ischemic Stress Test Summary: 09/20/19: Stress ECG Conclusion 1. Resting electrocardiogram was normal. 2. Patient underwent pharmacologic stress. Peak heart rate was 58% of predicted for age. There were no electrocardiographic changes noted. Electrocardiographically the test was nondiagnostic due to inadequate heart rate. 3. The patient had chest pain prior to the test which persisted 4. There were no significant dysrhythmias Critical Notification Critical Value: No MPI Conclusion Myocardial perfusion appeared within normal limits without evidence of infarction or superimposed ischemia Ejection fraction was 67% Anesthesia Assessment and Plan Anesthesia History Personal History: Other Family History: No Family History of Anesthesia Complications Exercise Tolerance Exercise Tolerance: Metabolic Equivalents>4 Cardiac & Pulmonary Exam Cardiac Exam: Normal S1/S2 Heart Sounds Pulmonary Exam: Clear Bilateral Breath Sounds Implantable Cardiac Device Does patient have a Pacemaker or an ICD?: No Airway Exam Known Difficult Airway: No Mallampati Class: 2 Mouth Opening: Normal (> 3cm) Thyromental Distance: Greater than 3 cm Neck Range of Motion: Full ROM Neck Circumference: Normal Teeth Condition: Normal Dentition ASA Classification ASA Score: ASA 3 Emergency Case?: No NPO Status NPO Status: NPO Clears >2 hours, Solids >8 hours Anesthesia Plan Resuscitation Status: Full Code Anesthesia Technique: MAC Anesthesia Airway Planned: Natural Airway Monitors Used: Standard Monitors
[2024-06-10 09:46] VITALS: BMI 31.0
--- NOTE | 2024-06-10 09:58 | BOWEL_PTH ---
PATIENT: Tara Aguilar LOC: [facility] U#:[id number] AGE/SX: 83/F ROOM: RE06/10/[address]: Tee Stout : 1940 BED: DIS: 06/10/2024 SPEC #: [id number] RECD: 06/10/24 12:51 STATUS: CARY RE #: [id number] MERRITT: 06/10/24 09:[address]: Tee Stout DEPT: Surgical Specimen RECD BY: Leyla Clark ENTERED: 06/10/24 12:55 SP TYPE: Bowel OTHR DR: Abbie Shannon Tissues: 1 - BIOPSY BOWEL 2 - BIOPSY BOWEL 3 - BIOPSY BOWEL 4 - BIOPSY BOWEL Procedures: GROSS AND MICRO LEVEL 4 Comments: [id number]
[2024-06-10 10:17] VITALS: BP 133/76; PULSE 79; RESP 17; TEMP 36.4; O2SAT 95
--- NOTE | 2024-06-10 10:37 | W.ANESPOSTOP ---
Postoperative Evaluation Date, Time and Location Date Performed: 06/10/24 Time Performed: 10:35 Patient Location: Day Surgery Unit Vital Signs Most Recent Imported Vital Signs: Most Recent Vital Signs Temp Pulse Resp BP Pulse Ox 36.4 C L 79 17 133/76 95 06/10/24 10:17 06/10/24 10:17 06/10/24 10:17 06/10/24 10:17 06/10/24 10:17 Pain Score Most Recent Pain Score: Most Recent Pain Score Pain Level 0 06/10/24 10:17 Assessment Mental Status: Awake (Alert & Oriented to Patient Baseline) Airway and Respiratory Function: Patent airway with normal (patient baseline) respiratory exam Cardiovascular Function: Hemodynamically Stable Hydration Status: Adequately Hydrated Nausea & Vomiting: No Nausea or Vomiting Pain: Pt. Denies Any Pain Peripheral Nerve Block: Patient did not receive a nerve block
[2024-06-10 10:52] VITALS: BP 141/71; PULSE 81; RESP 17; TEMP 36.5; O2SAT 95
--- NOTE | 2024-06-10 12:43 | W.ANESPOSTOP ---
Postoperative Evaluation Date, Time and Location Date Performed: 06/10/24 Time Performed: 10:25 Patient Location: Day Surgery Unit Vital Signs Most Recent Imported Vital Signs: Most Recent Vital Signs Temp Pulse Resp BP Pulse Ox 36.5 C 81 17 141/71 H 95 06/10/24 10:52 06/10/24 10:52 06/10/24 10:52 06/10/24 10:52 06/10/24 10:52 Most Recent Vital Signs Temp Pulse Resp BP Pulse Ox 36.4 C L 79 17 133/76 95 06/10/24 10:17 06/10/24 10:17 06/10/24 10:17 06/10/24 10:17 06/10/24 10:17 Pain Score Most Recent Pain Score: Most Recent Pain Score Pain Level 0 06/10/24 10:52 Assessment Mental Status: Awake (Alert & Oriented to Patient Baseline) Airway and Respiratory Function: Patent airway with normal (patient baseline) respiratory exam Cardiovascular Function: Hemodynamically Stable Hydration Status: Adequately Hydrated Nausea & Vomiting: No Nausea or Vomiting Pain: Pt. Denies Any Pain Peripheral Nerve Block: Patient did not receive a nerve block
== END 2024-06-10 11:00 | disposition home or self-care (01) ==
LOC: SUR 09:09
PROVIDERS: PCP Family Medicine; Visit Provider Student in an Organized Health Care Education/Training Program
PROC: 0DJD8ZZ Inspection of Lower Intestinal Tract, Via Natural or Artificial Opening Endoscopic (ICD-10-PCS; CPT 45378; principal; 2024-06-10 09:45)
DX: Z12.11 Encounter for screening for malignant neoplasm of colon (principal); K57.30 Diverticulosis of large intestine without perforation or abscess without bleeding; D12.0 Benign neoplasm of cecum; K64.1 Second degree hemorrhoids; D12.2 Benign neoplasm of ascending colon; D12.3 Benign neoplasm of transverse colon
CPT/HCPCS: 45380; 88305; J2250

== ENCOUNTER 2024-10-28 13:33 | Outpatient (REF) | payer MEDICARE, SELFPAY ==
[2024-10-28 14:13] LABS: Abs Immature Grans 0.03 10^3/uL (0.0-0.06); HCT 37.6 % (36.0-46.0); HGB 12.4 g/dL (11.2-15.7); Immature Grans % 0.4 %; MCH 29.4 pg (27.0-33.0); MCHC 33.0 % (32.0-36.0); MCV 89 fL (80-95); MPV 9.3 fL (8.0-11.0); Platelet Count 307 10^3/uL (130-400); RBC 4.22 10^6/uL (3.93-5.22); RDW 12.9 % (11.7-14.6); RDW-SD 42.3 fL; WBC 7.94 10^3/uL (4.4-10.8)
[2024-10-28 14:27] LABS: Iron 81 ug/dL (50-170); Total Iron Binding Capacity 424 ug/dL (250-450); Transferrin Sat 19 % (15-50)
[2024-10-28 14:40] LABS: Ferritin 27 ng/mL (8-252); Magnesium 1.8 mg/dL (1.8-2.4); TSH (W/Ref FT4) 2.86 uIU/mL (0.36-3.74)
== END 2024-10-28 13:34 | disposition home or self-care (01) ==
LOC: NCHCN 13:33
PROVIDERS: PCP Family Medicine; Visit Provider Family Medicine
DX: D50.9 Iron deficiency anemia, unspecified (principal); E03.9 Hypothyroidism, unspecified
CPT/HCPCS: 82728; 83540; 83550; 83735; 84443; 85025